=== PATIENT | female | born 1970 | race Caucasian/White ===

== ENCOUNTER → 2017-03-04 | Outpatient (CLI) | payer OTHER | LOC: M LAB 11:29 | PROVIDERS: ATTEND Family Medicine | DX: E11.42 Type 2 diabetes mellitus with diabetic polyneuropathy (principal) ==

== ENCOUNTER 2017-05-13 15:51 | Emergency (ER) | payer OTHER ==
[~2017-05-13] VITALS: Ht 157.5 cm; Wt 82.3 kg
[2017-05-13 15:51] VITALS: BP 162/100
[2017-05-13] MEDS ORDERED: ZYRT10CA PO (16:11)
[2017-05-13] MEDS ORDERED: PLAV1TAB2 PO (16:11)
[2017-05-13] MEDS ORDERED: CRES10TA32 PO (16:11)
[2017-05-13] MEDS ORDERED: ASPI1TAB PO (16:11)
[2017-05-13] MEDS ORDERED: BIOT10008 PO (16:11)
[2017-05-13] MEDS ORDERED: METF10004 PO (16:11)
[2017-05-13] MEDS ORDERED: TOUJ1.2I SC (16:11)
[2017-05-13] MEDS ORDERED: OMEP20CA3 PO (16:11)
[2017-05-13] MEDS ORDERED: SING10TA32 PO (16:11)
[2017-05-13] MEDS ORDERED: METO1TAB7 PO (16:11)
== END 2017-05-13 17:28 | disposition left against medical advice (07) ==
LOC: M ED 15:51
DX: J34.89 Other specified disorders of nose and nasal sinuses (principal); Z53.21 Procedure and treatment not carried out due to patient leaving prior to being seen by health care provider

== ENCOUNTER 2017-06-06 08:45 | Outpatient (RCR) | payer OTHER ==
[~2017-06-06 08:45] MED LIST: ASPI1TAB PO; BIOT10008 PO; CRES10TA32 PO; METF10004 PO; METO1TAB7 PO; OMEP20CA3 PO; PLAV1TAB2 PO; SING10TA32 PO; TOUJ1.2I SC; ZYRT10CA PO
== END 2017-06-08 ==
LOC: M PT 08:45
PROVIDERS: ATTEND Family Medicine
DX: Z51.89 Encounter for other specified aftercare (principal); M54.41 Lumbago with sciatica, right side

== ENCOUNTER → 2017-06-10 | Outpatient (CLI) | payer OTHER ==
--- NOTE | 2017-06-10 13:48 | REP ---
PA and lateral chest: Comparison is the portable chest dated 10/12/2014. The lung rosales are clear. Cardiac size is normal. The bunny, mediastinum, and bony thorax are. There is a spinal stimulator. This was also present previously. Impression: Essentially negative PA and lateral chest. Signed by Kayden Spicer MD 06/10/2017 01:39 P
== END ==
LOC: M RAD 12:22
PROVIDERS: ATTEND Family Medicine
DX: R05 Cough (principal)

== ENCOUNTER → 2017-08-07 | Outpatient (REF) | payer OTHER | LOC: M SFHCPLAZ 11:08 | PROVIDERS: ATTEND Family Medicine | DX: E11.42 Type 2 diabetes mellitus with diabetic polyneuropathy (principal) ==

== ENCOUNTER → 2017-11-11 | Outpatient (CLI) | payer OTHER ==
[2017-11-11 10:17] LABS: ALT/SGPT 52 U/L (12-78); AST/SGOT 33 U/L (7-37); CHOLESTEROL LEVEL 136 MG/DL (<200); CHOLESTEROL RISK RATIO 3.885 (<5); CPK CREATINE PHOSPHOKINASE 94 U/L (26-192); HDL CHOLESTEROL 35 MG/DL (>40); LDL CHOLESTEROL 63.2 MG/DL (<100); NON-HDL-C 101 MG/DL; TRIGLYCERIDES LEVEL 189 MG/DL (<150)
== END ==
LOC: M LAB 08:25
DX: Z98.61 Coronary angioplasty status (principal)
CPT/HCPCS: 84460

== ENCOUNTER → 2017-11-11 | Outpatient (CLI) | payer OTHER | LOC: M RAD 08:20 | DX: Z12.31 Encounter for screening mammogram for malignant neoplasm of breast (principal) | CPT/HCPCS: 77067 ==

== ENCOUNTER → 2018-01-21 | Outpatient (REF) | payer OTHER | LOC: M SFHCPLAZ 17:05 | DX: J02.9 Acute pharyngitis, unspecified (principal) | CPT/HCPCS: 87070 ==

== ENCOUNTER → 2018-03-06 | Outpatient (REF) | payer OTHER | LOC: M SFHCPLAZ 16:28 | DX: J02.9 Acute pharyngitis, unspecified (principal) ==

== ENCOUNTER 2018-03-09 21:13 | Emergency (ER) | payer SELFPAY, OTHER ==
[2018-03-09] MEDS: BENZONATATE 100 MG CAP PO (23:06)
[2018-03-09] MEDS: dexameTHASONE 4 MG/ML 1ML VIAL (J1100) PO (23:06)
== END 2018-03-09 23:44 | disposition home or self-care (01) ==
LOC: M ED 21:13
DX: J06.9 Acute upper respiratory infection, unspecified (principal); I25.2 Old myocardial infarction; E11.9 Type 2 diabetes mellitus without complications; I10 Essential (primary) hypertension; E78.5 Hyperlipidemia, unspecified; J45.909 Unspecified asthma, uncomplicated; J18.9 Pneumonia, unspecified organism; R51 Headache; K21.9 Gastro-esophageal reflux disease without esophagitis; Z95.5 Presence of coronary angioplasty implant and graft; Z79.82 Long term (current) use of aspirin; Z79.899 Other long term (current) drug therapy; Z88.8 Allergy status to other drugs, medicaments and biological substances; Z88.5 Allergy status to narcotic agent
CPT/HCPCS: J1100

== ENCOUNTER → 2018-07-23 | Outpatient (REF) | payer OTHER, SELFPAY | LOC: M LAB REF 17:09 | DX: J02.9 Acute pharyngitis, unspecified (principal) | CPT/HCPCS: 87070 ==

== ENCOUNTER → 2018-08-29 | Outpatient (REF) | payer OTHER ==
[~2018-08-29] MED LIST changes: +CHERSYP3 PO; +TESS100C PO; +XYZA5TAB2 PO
== END ==
LOC: M SFHCPLAZ 15:26
PROVIDERS: ATTEND Family Medicine
DX: L03.115 Cellulitis of right lower limb (principal)

== ENCOUNTER 2018-10-17 10:51 | Emergency (ER) | payer OTHER ==
[2018-10-17] MEDS ORDERED: insulin (11:14)
[2018-10-17] MEDS ORDERED: PANTOPRAZOLE 40MG INJ (PROTONIX) (C9113) IV ONE (11:45)
[2018-10-17] MEDS ORDERED: NITROGLYCERIN 0.4 MG SUBL TABLET SL PRN (11:45)
[2018-10-17 11:46] LABS: BASO # 0.1 10^3/uL (0.0-0.2); BASO % 0.8 % (0.0-1.0); EOS # 0.3 10^3/uL (0.0-0.50); EOS % 4.3 % (0.0-3.0); HEMATOCRIT 36.1 % (36.0-47.0); HEMOGLOBIN 11.9 g/dl (12.0-15.5); LYMPH # 1.9 10^3/uL (1.5-4.5); LYMPH % 30.2 % (24.0-44.0); MEAN CORPUSCULAR HEMOGLOBIN 28.2 pg (27.0-33.0); MEAN CORPUSCULAR VOLUME 85.5 fl (80.0-96.0); MONO # 0.3 10^3/uL (0.0-0.8); MONO % 5.4 % (0.0-5.0); NEUTROPHILS # 3.7 10^3/uL (1.8-7.7); NEUTROPHILS % 59.1 % (36.0-66.0); PLATELET COUNT, AUTOMATED 272 10^3/uL (150-450); RED BLOOD COUNT 4.22 10^6/uL (4.00-5.40); WHITE BLOOD COUNT 6.3 10^3/uL (4.0-10.0)
[2018-10-17 11:52] VITALS: BP 129/95
[2018-10-17 11:56] LABS: INR 0.95; PARTIAL THROMBOPLASTIN TIME 29.5 SECONDS (25.4-37.6); PROTHROMBIN TIME 12.8 SECONDS (12.1-14.4)
[2018-10-17 12:06] LABS: ALBUMIN 3.4 GM/DL (3.2-5.2); ALT/SGPT 48 U/L (12-78); BILIRUBIN,DIRECT < 0.1 MG/DL (0.0-0.2); BILIRUBIN,TOTAL 0.2 MG/DL (0.2-1.0); BLOOD UREA NITROGEN 11 MG/DL (7-18); CALCIUM LEVEL 8.8 MG/DL (8.5-10.1); CARBON DIOXIDE LEVEL 25 MEQ/L (21-32); CHLORIDE LEVEL 105 MEQ/L (98-107); CPK CREATINE PHOSPHOKINASE 118 U/L (26-192); CREATININE FOR GFR 0.78 MG/DL (0.55-1.30); GLOMERULAR FILTRATION RATE > 60.0 (>58); GLUCOSE, FASTING 281 MG/DL (70-100); LIPASE 95 U/L (73-393); MB/CK RELATIVE INDEX 1.61 (< OR =4); POTASSIUM SERUM 4.8 MEQ/L (3.5-5.1); SODIUM LEVEL 137 MEQ/L (136-145); TOTAL PROTEIN 6.8 GM/DL (6.4-8.2); TROPONIN I < 0.02 NG/ML (< 0.10)
--- NOTE | 2018-10-17 13:16 | REP ---
AP PORTABLE CHEST: 10/17/2018. Clinical history: Dyspnea. Chest pain. Comparison: 03/09/2018 chest x-ray. Findings: Lungs are adequately inflated. There is no effusion, infiltrate, atelectasis or mass. No parenchymal nodules visible. The heart is not enlarged. Aorta and airway intact. There is no widening the mediastinum. The dorsal column stimulator is seen extending into the neck and its tip not visible on this field of view. Battery unit overlying the right flank. Bones were unremarkable. No free air. Impression: 1. No acute cardiopulmonary change. Stable chest from 03/09/2018. Dorsal column stimulator noted. Electronically Signed by Carlos Whyte MD 10/17/2018 05:49 P
--- NOTE | 2018-10-17 13:18 | ECGEPIP ---
Stationary ECG Study [facility] - ED Test Date: 2018-10-17 Pat Name: VANI LOZA Department: Room: - Gender: F Core Manager: GREG : 1970 Requested By: Adams Nunes Order Number: [id number] Reading MD: Anna Cheatham Measurements Intervals [place] Rate: 95 P: 36 LA: 166 QRS: 2 QRSD: 89 T: 69 QT: 359 QTc: 453 Interpretive Statements SINUS RHYTHM ANTEROSEPTAL MYOCARDIAL INFARCTION, PROBABLY OLD NSTTW ABNORMALITY INCREASED RATE 10/13/14 Electronically Signed On 10-17-2018 13:18:24 EST by Anna Cheatham
[2018-10-17 14:23] LABS: CPK CREATINE PHOSPHOKINASE 118 U/L (26-192); MB/CK RELATIVE INDEX 1.27 (< OR =4); TROPONIN I < 0.02 NG/ML (< 0.10)
[2018-10-17 15:45] VITALS: BP 121/73
[2018-10-17 16:44] LABS: CPK CREATINE PHOSPHOKINASE 96 U/L (26-192); MB/CK RELATIVE INDEX 1.56 (< OR =4); TROPONIN I < 0.02 NG/ML (< 0.10)
[2018-10-17] MEDS ORDERED: PROT1TAB2 PO (16:56)
--- NOTE | 2018-10-17 18:02 | ECGEPIP ---
Stationary ECG Study [facility] - ED Test Date: 2018-10-17 Pat Name: VANI LOZA Department: Room: - Gender: F Rn Spine: MAREK : 1970 Requested By: Adams Nunes Order Number: [id number] Reading MD: Anna Cheatham Measurements Intervals [place] Rate: 86 P: 34 WI: 166 QRS: 1 QRSD: 86 T: 66 QT: 363 QTc: 435 Interpretive Statements SINUS RHYTHM ANTEROSEPTAL MYOCARDIAL INFARCTION, PROBABLY OLD NSTTW ABNORMALITY DECREASED RATE 10/17/18 Electronically Signed On 10-17-2018 18:01:46 EST by Anna Cheatham
--- NOTE | 2018-10-17 18:03 | ECGEPIP ---
Stationary ECG Study [facility] - ED Test Date: 2018-10-17 Pat Name: VANI LOZA Department: Room: - Gender: F Etiquette Coach: GREG : 1970 Requested By: Adams Nunes Order Number: [id number] Reading MD: Anna Cheatham Measurements Intervals [place] Rate: 83 P: 43 VT: 173 QRS: 19 QRSD: 90 T: 78 QT: 373 QTc: 441 Interpretive Statements SINUS RHYTHM SEPTAL MYOCARDIAL INFARCTION, PROBABLY OLD SIMILAR 10/17/18 Electronically Signed On 10-17-2018 18:03:21 EST by Anna Cheatham
== END 2018-10-17 17:07 | disposition home or self-care (01) ==
LOC: EDBD 10:51 → M ED 10:51
DX: E10.43 Type 1 diabetes mellitus with diabetic autonomic (poly)neuropathy (principal); K21.9 Gastro-esophageal reflux disease without esophagitis; I25.10 Atherosclerotic heart disease of native coronary artery without angina pectoris; I25.2 Old myocardial infarction; I10 Essential (primary) hypertension; E78.5 Hyperlipidemia, unspecified; Z95.5 Presence of coronary angioplasty implant and graft; Z79.82 Long term (current) use of aspirin; Z79.84 Long term (current) use of oral hypoglycemic drugs; Z79.4 Long term (current) use of insulin; Z79.899 Other long term (current) drug therapy; Z88.5 Allergy status to narcotic agent; Z88.8 Allergy status to other drugs, medicaments and biological substances
CPT/HCPCS: 71045; 80048; 80076; 82550; 82553; 83690; 85025; 85379; 85610; 85730; 93005; 93041; 94760; 96374; 99285; C9113

== ENCOUNTER → 2018-11-21 | Outpatient (REF) | payer OTHER ==
[~2018-11-21] MED LIST changes: +PROT1TAB2 PO; +insulin
[2018-11-21 14:12] LABS: BASO # 0.1 10^3/uL (0.0-0.2); BASO % 1.1 % (0.0-1.0); EOS # 0.7 10^3/uL (0.0-0.50); EOS % 8.3 % (0.0-3.0); HEMATOCRIT 39.4 % (36.0-47.0); LYMPH # 2.4 10^3/uL (1.5-4.5); LYMPH % 29.7 % (24.0-44.0); MEAN CORPUSCULAR HEMOGLOBIN 28.3 pg (27.0-33.0); MEAN CORPUSCULAR VOLUME 85.7 fl (80.0-96.0); MONO # 0.6 10^3/uL (0.0-0.8); MONO % 6.8 % (0.0-5.0); NEUTROPHILS # 4.3 10^3/uL (1.8-7.7); NEUTROPHILS % 53.6 % (36.0-66.0); PLATELET COUNT, AUTOMATED 254 10^3/uL (150-450)
[2018-11-21 14:20] LABS: APPEARANCE, URINE CLEAR (CLEAR); BACTERIA, URINE AUTO 1+ (NEGATIVE); BILIRUBIN, URINE AUTO NEGATIVE (NEGATIVE); BLOOD, URINE BLOOD NEGATIVE (NEGATIVE); COLOR, URINE YELLOW (YELLOW); GLUCOSE, URINE (UA) AUTO NEGATIVE (NEGATIVE); KETONE, URINE AUTO NEGATIVE (NEGATIVE); LEUKOCYTE ESTERASE, URINE AUTO NEGATIVE (NEGATIVE); MUCUS, URINE SMALL (NEGATIVE); NITRITE, URINE AUTO NEGATIVE (NEGATIVE); PROTEIN, URINE AUTO NEGATIVE (NEGATIVE); RBC, URINE AUTO 1 /HPF (0-3); SPECIFIC GRAVITY URINE AUTO 1.009 (1.002-1.035); SQUAMOUS EPITHELIAL CELL UR AU 5 /HPF (0-6); UROBILINOGEN, URINE AUTO 0.2 mg/dL (0.0-2.0); WBC, URINE AUTO 0 /HPF (0-3)
[2018-11-21 14:30] LABS: ALBUMIN 3.6 GM/DL (3.2-5.2); ALT/SGPT 54 U/L (12-78); BILIRUBIN,TOTAL 0.3 MG/DL (0.2-1.0); BLOOD UREA NITROGEN 14 MG/DL (7-18); CALCIUM LEVEL 8.8 MG/DL (8.5-10.1); CARBON DIOXIDE LEVEL 27 MEQ/L (21-32); CHLORIDE LEVEL 107 MEQ/L (98-107); CHOLESTEROL LEVEL 129 MG/DL (<200); CHOLESTEROL RISK RATIO 4.031 (<5); CREATININE FOR GFR 0.77 MG/DL (0.55-1.30); FREE T4 0.88 NG/DL (0.76-1.46); GLOMERULAR FILTRATION RATE > 60.0 (>58); GLUCOSE, FASTING 113 MG/DL (70-100); HDL CHOLESTEROL 32 MG/DL (>40); LDL CHOLESTEROL 58 MG/DL (<100); NON-HDL-C 97 MG/DL; POTASSIUM SERUM 4.2 MEQ/L (3.5-5.1); SODIUM LEVEL 140 MEQ/L (136-145); TOTAL 25(OH) VITAMIN D 14.3 NG/ML (30.0-100.0); TRIGLYCERIDES LEVEL 196 MG/DL (<150)
[2018-11-21 14:44] LABS: CREATININE, URINE 60.8 MG/DL; MALB URINE SIEMENS 7.6 MG/L; MAU/CREAT RATIO 12.5 MCG/MG (0.0-30.0)
[2018-11-21 15:37] LABS: HEMOGLOBIN A1c 8.5 %
[2018-11-22 14:37] LABS: Lyme Disease IgG/IgM Antibodie <0.91 ISR (0.00-0.90); Lyme Disease IgM Ab Quantitati <0.80 index (0.00-0.79)
== END ==
LOC: M LAB REF 11:54
PROVIDERS: ATTEND Family Medicine
DX: Z00.01 Encounter for general adult medical examination with abnormal findings (principal); I25.10 Atherosclerotic heart disease of native coronary artery without angina pectoris; E10.9 Type 1 diabetes mellitus without complications

== ENCOUNTER 2019-01-21 16:56 | Emergency (ER) | payer OTHER ==
[~2019-01-21] VITALS: Ht 157.5 cm; Wt 84.5 kg
[~2019-01-21 16:56] MED LIST changes: -ASPI1TAB PO; +ASPI81TA26 PO; +CRES10TA PO; -CRES10TA32 PO
[2019-01-21] MEDS ORDERED: INSUHUMDS (17:14)
[2019-01-21 17:50] LABS: BASO # 0.1 10^3/uL (0.0-0.2); EOS # 0.6 10^3/uL (0.0-0.50); EOS % 7.8 % (0.0-3.0); HEMATOCRIT 39.9 % (36.0-47.0); HEMOGLOBIN 13.4 g/dl (12.0-15.5); LYMPH # 2.4 10^3/uL (1.5-4.5); LYMPH % 30.3 % (24.0-44.0); MEAN CORPUSCULAR HEMOGLOBIN 28.5 pg (27.0-33.0); MEAN CORPUSCULAR HGB CONC 33.6 g/dl (32.0-36.5); MEAN CORPUSCULAR VOLUME 84.9 fl (80.0-96.0); MONO # 0.5 10^3/uL (0.0-0.8); MONO % 5.9 % (0.0-5.0); NEUTROPHILS # 4.3 10^3/uL (1.8-7.7); NEUTROPHILS % 54.7 % (36.0-66.0); PLATELET COUNT, AUTOMATED 246 10^3/uL (150-450); WHITE BLOOD COUNT 7.8 10^3/uL (4.0-10.0)
[2019-01-21 17:58] LABS: INR 0.94; PROTHROMBIN TIME 12.7 SECONDS (12.1-14.4)
[2019-01-21 18:07] LABS: ALBUMIN 3.6 GM/DL (3.2-5.2); ALT/SGPT 55 U/L (12-78); BILIRUBIN,TOTAL 0.2 MG/DL (0.2-1.0); BLOOD UREA NITROGEN 8 MG/DL (7-18); CARBON DIOXIDE LEVEL 22 MEQ/L (21-32); CHLORIDE LEVEL 108 MEQ/L (98-107); CPK CREATINE PHOSPHOKINASE 101 U/L (26-192); CREATININE FOR GFR 0.83 MG/DL (0.55-1.30); GLOMERULAR FILTRATION RATE > 60.0 (>58); GLUCOSE, FASTING 230 MG/DL (70-100); LIPASE 162 U/L (73-393); MB/CK RELATIVE INDEX 1.58 (< OR =4); SODIUM LEVEL 138 MEQ/L (136-145); TOTAL PROTEIN 6.9 GM/DL (6.4-8.2); TROPONIN I < 0.02 NG/ML (< 0.10)
--- NOTE | 2019-01-21 18:30 | REP ---
Chest x-ray: Portable single view: History: Chest pain. Comparison study: October 17, 2018. Findings: The lungs are well inflated and clear. Heart size is normal. EKG monitoring electrodes are seen. There is a neurostimulator wire lead seen overlying the right chest and apparently coursing into the cervical spinal canal. No bony abnormality is seen. Pulmonary vasculature is not increased. The pleural angles are sharp. Impression: No active cardiopulmonary disease. Neurostimulator device seen. Electronically Signed by Konrad Sánchez MD 01/21/2019 07:08 P
[2019-01-21] MEDS ORDERED: KETOROLAC 30 MG/ML VIAL (J1885) IV ONE ×2 (19:30→21:45)
[2019-01-21] MEDS ORDERED: ACETAMINOPHEN TAB 650MG DOSE (2X325MG) PO ONE (20:15)
--- NOTE | 2019-01-21 21:08 | ECGEPIP ---
Stationary ECG Study [facility] - ED Test Date: 2019-01-21 Pat Name: VANI LOZA Department: Room: - Gender: F Twister Tender Paper: hakan : 1970 Requested By: MIKE Josue Order Number: [id number] Reading MD: Anna Cheatham Measurements Intervals [place] Rate: 94 P: 42 [place]: 155 QRS: 15 QRSD: 96 T: 75 QT: 377 QTc: 473 Interpretive Statements SINUS RHYTHM ANTEROSEPTAL MYOCARDIAL INFARCTION, OF INDETERMINATE AGE NSTTW ABNORMALITY INCREASED RATE 10/17/18 Electronically Signed On 01-21-2019 21:08:02 EDT by Anna Cheatham
--- NOTE | 2019-01-21 21:11 | ECGEPIP ---
Stationary ECG Study [facility] - ED Test Date: 2019-01-21 Pat Name: VANI LOZA Department: Room: - Gender: F Turkey Egg Gatherer: muriel : 1970 Requested By: MIKE Josue Order Number: [id number] Reading MD: Anna Cheatham Measurements Intervals [place] Rate: 78 P: 12 IN: 148 QRS: 1 QRSD: 90 T: 68 QT: 381 QTc: 436 Interpretive Statements SINUS RHYTHM ANTEROSEPTAL MYOCARDIAL INFARCTION, OF INDETERMINATE AGE NSTTW ABNORMALITY DECREASED RATE 01/21/19 17:22 Electronically Signed On 01-21-2019 21:11:26 EDT by Anna Cheatham
[2019-01-21 21:20] LABS: MB/CK RELATIVE INDEX 1.34 (< OR =4); TROPONIN I 0.02 NG/ML (< 0.10)
[2019-01-21 21:59] VITALS: BP 34/80
== END 2019-01-21 22:12 | disposition home or self-care (01) ==
LOC: M ED 16:56
DX: R07.89 Other chest pain (principal); I25.10 Atherosclerotic heart disease of native coronary artery without angina pectoris; I25.2 Old myocardial infarction; E10.9 Type 1 diabetes mellitus without complications; I10 Essential (primary) hypertension; E78.5 Hyperlipidemia, unspecified; K21.9 Gastro-esophageal reflux disease without esophagitis; G43.909 Migraine, unspecified, not intractable, without status migrainosus; Z95.5 Presence of coronary angioplasty implant and graft; Z96.9 Presence of functional implant, unspecified; Z79.82 Long term (current) use of aspirin; Z79.4 Long term (current) use of insulin; Z79.899 Other long term (current) drug therapy; Z88.5 Allergy status to narcotic agent; Z88.4 Allergy status to anesthetic agent
CPT/HCPCS: 36415; 71045; 80053; 82550; 82553; 83690; 85025; 85610; 93005; 93041; 94760; 96374; 99285; J1885

== ENCOUNTER 2019-05-04 20:50 | Emergency (ER) | payer OTHER, SELFPAY ==
[~2019-05-04] VITALS: Ht 157.5 cm; Wt 81.8 kg
[~2019-05-04 20:50] MED LIST changes: +INSUHUMDS SC; +OMEP1CAP73 PO; -OMEP20CA3 PO
[2019-05-04 21:35] LABS: BASO # 0.1 10^3/uL (0.0-0.2); BASO % 0.8 % (0.0-1.0); EOS # 0.3 10^3/uL (0.0-0.50); EOS % 3.5 % (0.0-3.0); HEMATOCRIT 39.4 % (36.0-47.0); HEMOGLOBIN 13.4 g/dl (12.0-15.5); LYMPH # 2.5 10^3/uL (1.5-4.5); LYMPH % 33.6 % (24.0-44.0); MEAN CORPUSCULAR HEMOGLOBIN 28.1 pg (27.0-33.0); MEAN CORPUSCULAR VOLUME 82.6 fl (80.0-96.0); MONO # 0.5 10^3/uL (0.0-0.8); MONO % 6.3 % (0.0-5.0); NEUTROPHILS # 4.1 10^3/uL (1.8-7.7); NEUTROPHILS % 55.7 % (36.0-66.0); PLATELET COUNT, AUTOMATED 256 10^3/uL (150-450); RED BLOOD COUNT 4.77 10^6/uL (4.00-5.40); WHITE BLOOD COUNT 7.4 10^3/uL (4.0-10.0)
[2019-05-04 22:10] LABS: ALBUMIN 3.7 GM/DL (3.2-5.2); ALT/SGPT 49 U/L (12-78); AMYLASE 37 U/L (25-115); BILIRUBIN,DIRECT < 0.1 MG/DL (0.0-0.2); BILIRUBIN,TOTAL 0.4 MG/DL (0.2-1.0); BLOOD UREA NITROGEN 11 MG/DL (7-18); CALCIUM LEVEL 9.4 MG/DL (8.5-10.1); CARBON DIOXIDE LEVEL 28 MEQ/L (21-32); CHLORIDE LEVEL 104 MEQ/L (98-107); CREATININE FOR GFR 1.34 MG/DL (0.55-1.30); GLOMERULAR FILTRATION RATE 45.1 (>58); GLUCOSE, FASTING 237 MG/DL (70-100); LIPASE 188 U/L (73-393); POTASSIUM SERUM 4.3 MEQ/L (3.5-5.1); SODIUM LEVEL 136 MEQ/L (136-145); TOTAL PROTEIN 7.6 GM/DL (6.4-8.2)
[2019-05-05] MEDS ORDERED: TRUL0.5I SC (00:30)
[2019-05-05] MEDS ORDERED: LEVOTAB10 (00:30)
[2019-05-05] MEDS ORDERED: ISOVUE-370 76% 100ML VIAL (Q9967) As Ordered ONE (00:54)
[2019-05-05] MEDS ORDERED: NS 1,000 ML IV ONE (01:00)
[2019-05-05] MEDS ORDERED: ONDANSETRON 4MG/2ML VIAL (J2405) IV ONE (01:00)
[2019-05-05] MEDS ORDERED: KETOROLAC 30 MG/ML VIAL (J1885) IV ONE (01:00)
[2019-05-05 02:44] VITALS: BP 130/84
--- NOTE | 2019-05-05 03:00 | REPVR ---
EXAM: CT Abdomen and Pelvis With Contrast EXAM DATE/TIME: 05/05/19 (1:02am) CLINICAL HISTORY: 48 year old female with epigastric pain TECHNIQUE: Imaging protocol: Computed tomography images of the abdomen and pelvis with intravenous contrast. Radiation optimization: All CT scans at this facility use at least one of these dose optimization techniques: automated exposure control; mA and/or kV adjustment per patient size (includes targeted exams where dose is matched to clinical indication); or iterative reconstruction. Contrast material: Iso Contrast volume: 100 ml Contrast route: Antecubital vein COMPARISON: No relevant prior studies available FINDINGS: Liver: No solid mass. Diffuse fatty infiltration. Gallbladder and bile ducts: Contracted gallbladder. No obvious calcified stones. No ductal dilatation. Pancreas: Normal. No ductal dilatation. Spleen: Normal. No splenomegaly. Adrenals: Normal. No mass. Kidneys and ureters: Normal. No hydronephrosis. Stomach and bowel: Normal. No bowel obstruction. No mucosal thickening. Appendix: No evidence of appendicitis. Intraperitoneal space: Normal. No free air. No significant fluid collection. Vasculature: Normal. No abdominal aortic aneurysm. Lymph nodes: Normal. No enlarged lymph nodes. Bladder: Unremarkable as visualized. Reproductive: Perhaps previous hysterectomy. Left adnexal cyst(s) (largest cystic component measures 3.6 x 2.3 x 2.5 cm in dimensions). Bones/joints: No acute fracture nor dislocation. Soft tissues: Unremarkable. IMPRESSION: No acute findings. Perhaps previous hysterectomy. Left adnexal cyst(s) (perhaps left ovarian cyst(s), if the left ovary remains). Electronically signed by: Jacqui Echeverria On 05/05/2019 03:00:16 AM
[2019-05-05] MEDS ORDERED: METAL LOCK LOOP XX ONE (03:15)
[2019-05-05] MEDS ORDERED: DICY10CA13 PO (03:33)
== END 2019-05-05 03:43 | disposition home or self-care (01) ==
LOC: M ED 20:50
DX: R10.9 Unspecified abdominal pain (principal); I25.10 Atherosclerotic heart disease of native coronary artery without angina pectoris; I25.2 Old myocardial infarction; E11.9 Type 2 diabetes mellitus without complications; K58.9 Irritable bowel syndrome, unspecified; K21.9 Gastro-esophageal reflux disease without esophagitis; Z95.5 Presence of coronary angioplasty implant and graft; Z79.82 Long term (current) use of aspirin; Z79.4 Long term (current) use of insulin; Z79.899 Other long term (current) drug therapy; Z88.8 Allergy status to other drugs, medicaments and biological substances; Z88.5 Allergy status to narcotic agent
CPT/HCPCS: 36415; 74177; 80048; 80076; 81001; 82150; 83690; 85025; 96361; 96374; 96375; 99284; J1885; J2405; Q9967

== ENCOUNTER 2019-05-22 12:45 | Emergency (ER) | payer OTHER ==
[~2019-05-22] VITALS: Ht 157.5 cm; Wt 81.9 kg
[~2019-05-22 12:45] MED LIST changes: -BACIOIN5 OP; -BACIOIN5 TOP; -CETI-14 PO; -DOCU100C17 PO; -KEFL500C17 PO; -METH750T2 PO; -METO1TAB33 PO; -OMEP-221 PO; -ROBA750T4 PO; -ULTR50TA8 PO; -zyrtec PO
[2019-05-22] MEDS ORDERED: OMEP-221 PO (13:27)
[2019-05-22] MEDS ORDERED: zyrtec PO (13:27)
[2019-05-22] MEDS ORDERED: TOUJ1.2I SC (13:27)
[2019-05-22 14:24] LABS: APPEARANCE, URINE CLEAR (CLEAR); BACTERIA, URINE AUTO NEGATIVE (NEGATIVE); BILIRUBIN, URINE AUTO NEGATIVE (NEGATIVE); BLOOD, URINE BLOOD NEGATIVE (NEGATIVE); COLOR, URINE STRAW (YELLOW); GLUCOSE, URINE (UA) AUTO 3+ mg/dL (NEGATIVE); KETONE, URINE AUTO TRACE mg/dL (NEGATIVE); LEUKOCYTE ESTERASE, URINE AUTO NEGATIVE (NEGATIVE); NITRITE, URINE AUTO NEGATIVE (NEGATIVE); PROTEIN, URINE AUTO NEGATIVE (NEGATIVE); RBC, URINE AUTO 1 /HPF (0-3); SPECIFIC GRAVITY URINE AUTO 1.005 (1.002-1.035); SQUAMOUS EPITHELIAL CELL UR AU 0 /HPF (0-6); UROBILINOGEN, URINE AUTO 0.2 mg/dL (0.0-2.0); WBC, URINE AUTO 0 /HPF (0-3)
[2019-05-22 14:28] LABS: BASO # 0.1 10^3/uL (0.0-0.2); BASO % 0.7 % (0.0-1.0); EOS # 0.2 10^3/uL (0.0-0.5); EOS % 3.1 % (0.0-3.0); HEMATOCRIT 38.6 % (36.0-47.0); MEAN CORPUSCULAR HEMOGLOBIN 28.3 pg (27.0-33.0); MEAN CORPUSCULAR HGB CONC 33.7 g/dl (32.0-36.5); MEAN CORPUSCULAR VOLUME 83.9 fl (80.0-96.0); MONO # 0.5 10^3/uL (0.0-0.8); MONO % 7.6 % (0.0-5.0); NEUTROPHILS # 3.9 10^3/uL (1.5-8.5); NEUTROPHILS % 58.5 % (36.0-66.0); PLATELET COUNT, AUTOMATED 240 10^3/uL (150-450); WHITE BLOOD COUNT 6.7 10^3/uL (4.0-10.0)
[2019-05-22 14:44] LABS: BLOOD UREA NITROGEN 8 MG/DL (7-18); C REACTIVE PROTEIN QUANTITATIV 0.76 MG/DL (0.00-0.30); CALCIUM LEVEL 9.2 MG/DL (8.5-10.1); CARBON DIOXIDE LEVEL 27 MEQ/L (21-32); CHLORIDE LEVEL 105 MEQ/L (98-107); CREATININE FOR GFR 0.83 MG/DL (0.55-1.30); GLOMERULAR FILTRATION RATE > 60.0 (>58); GLUCOSE, FASTING 200 MG/DL (70-100); POTASSIUM SERUM 4.1 MEQ/L (3.5-5.1); SODIUM LEVEL 137 MEQ/L (136-145)
--- NOTE | 2019-05-22 15:08 | REP ---
ULTRASOUND LEFT LOWER ANTERIOR ABDOMINAL WALL: Real-time sonographic evaluation of left lower anterior abdominal wall performed at the site of inflammation. There is soft tissue edema seen. No discrete fluid collection or abscess is seen. IMPRESSION: No sonographic evidence of abscess in the area of inflammation of the anterior abdominal wall inferiorly on the left. Electronically Signed by Kayden Casey MD 05/22/2019 03:20 P
[2019-05-22] MEDS ORDERED: ULTR50TA8 PO (15:13)
[2019-05-22] MEDS ORDERED: ROBA750T4 PO (15:13)
[2019-05-22] MEDS ORDERED: BACIOIN5 OP (15:13)
[2019-05-22] MEDS ORDERED: KEFL500C17 PO (15:13)
[2019-05-22 15:27] VITALS: BP 124/79
== END 2019-05-22 15:30 | disposition home or self-care (01) ==
LOC: M ED 12:45
DX: M54.30 Sciatica, unspecified side (principal); L03.311 Cellulitis of abdominal wall; I25.10 Atherosclerotic heart disease of native coronary artery without angina pectoris; Z88.5 Allergy status to narcotic agent; Z79.82 Long term (current) use of aspirin; Z79.899 Other long term (current) drug therapy; Z79.4 Long term (current) use of insulin

== ENCOUNTER → 2019-05-22 | Outpatient (REF) | payer OTHER ==
[~2019-05-22] MED LIST changes: +BACIOIN5 OP; +BACIOIN5 TOP; +CETI-14 PO; +DICY10CA13 PO; +DOCU100C17 PO; +KEFL500C17 PO; +LEVOTAB10; +METH750T2 PO; +METO1TAB33 PO; +OMEP-221 PO; -OMEP1CAP73 PO; +OMEP20CA4 PO; +ROBA750T4 PO; +TRUL0.5I SC; +ULTR50TA8 PO; +zyrtec PO
== END ==
LOC: M LAB REF 18:36
PROVIDERS: ATTEND Family Medicine
DX: L03.90 Cellulitis, unspecified (principal)

== ENCOUNTER 2019-05-25 13:26 | Inpatient (IN) | payer OTHER ==
[~2019-05-25] VITALS: Ht 157.5 cm; Wt 79.5 kg
[~2019-05-25 13:26] MED LIST changes: +BACIOIN5 OP; +KEFL500C17 PO; +OMEP-221 PO; +ROBA750T4 PO; +ULTR50TA8 PO; +zyrtec PO
[2019-05-25 15:02] VITALS: BP 132/89
[2019-05-25] MEDS ORDERED: MAALOX 30 ML SUSP *UDC PO PRN (15:15)
[2019-05-25] MEDS ORDERED: MOM 30ML SUSPENSION UDC PO PRN (15:15)
[2019-05-25 15:38] LABS: HEMATOCRIT 39.9 % (36.0-47.0); HEMOGLOBIN 13.7 g/dl (12.0-15.5); MEAN CORPUSCULAR HEMOGLOBIN 28.8 pg (27.0-33.0); MEAN CORPUSCULAR HGB CONC 34.3 g/dl (32.0-36.5); PLATELET COUNT, AUTOMATED 249 10^3/uL (150-450); RED BLOOD COUNT 4.75 10^6/uL (4.00-5.40); WHITE BLOOD COUNT 7.8 10^3/uL (4.0-10.0)
[2019-05-25] MEDS ORDERED: METH750T2 PO (16:01)
[2019-05-25] MEDS ORDERED: CETI-14 PO (16:01)
[2019-05-25] MEDS ORDERED: DOCU100C17 PO (16:01)
[2019-05-25] MEDS ORDERED: METO1TAB33 PO (16:01)
[2019-05-25 16:05] LABS: ALBUMIN 3.7 GM/DL (3.2-5.2); ALT/SGPT 36 U/L (12-78); BILIRUBIN,TOTAL 0.2 MG/DL (0.2-1.0); BLOOD UREA NITROGEN 10 MG/DL (7-18); CALCIUM LEVEL 9.6 MG/DL (8.5-10.1); CARBON DIOXIDE LEVEL 23 MEQ/L (21-32); CHLORIDE LEVEL 106 MEQ/L (98-107); GLOMERULAR FILTRATION RATE > 60.0 (>58); GLUCOSE, FASTING 166 MG/DL (70-100); POTASSIUM SERUM 3.9 MEQ/L (3.5-5.1); SODIUM LEVEL 139 MEQ/L (136-145); TOTAL PROTEIN 7.2 GM/DL (6.4-8.2)
[2019-05-25] MEDS ORDERED: BACIOIN5 TOP (16:23)
--- NOTE | 2019-05-25 16:37 | HPEPDOC ---
General Date of Admission May 25, 2019 at 14:56 Date of Service: May 25, 2019 Chief Complaint The patient is a 48-year-old female admitted with a reason for visit of Cellulitis. Source: Patient, Old records Exam Limitations: No limitations Severity: Moderate History of Present Illness 48 year old female with PMH of Diabetes with neuropathy, hypertension, CAD, hyperlipidemia who developed an abdominal furuncle about 5 days ago. She went to see her PMD and had a wound swab done 3 days ago which came back positive for MRSA . She was called today and told to come to the hospital for IV antibiotics. SHe complains of mild soreness at the region of furuncle located in the left lower quadrant about 3 cm x 4 cm in size . pain is about 3/10 in intensity dull aching in nature without any radiation. SHe also complains of chronic low back pain dull aching in nature. She is admitted for MRSA abdominal cellulitis. Home Medications Scheduled Aspirin (Aspirin EC) 81 Mg Tab, 81 MG PO DAILY, (Reported) Bacitracin (Bacitracin) 3.5 Gm Oint...g., 1 APLCT OP TID Cephalexin (Keflex) 500 Mg Capsule, 500 MG PO QID Cetirizine HCl (Cetirizine HCl) 10 Mg Tablet, 10 MG PO QHS, (Reported) Clopidogrel Bisulfate (Plavix) 75 Mg Tab, 75 MG PO DAILY, (Reported) Dulaglutide (Trulicity) 1.5 Mg/0.5 Ml Pen.injctr, 1.5 MG SC 1XWK, (Reported) SATURDAY MORNINGS Insulin Glargine,Hum.rec.anlog ([place]) 300 Unit/1 Ml Insuln.pen, 35 UNIT SC DAILY, (Reported) Insulin Human Lispro (Humalog) 100 Unit/1 Ml Vial, SC ACHS, (Reported) Metformin HCl (Metformin HCl) 1,000 Mg Tab, 1,000 MG PO BID, (Reported) Metoprolol Succinate (Metoprolol Succinate) 100 Mg Tab.er.24h, 50 MG PO BID, (Reported) Montelukast Sodium (Singulair) 10 Mg Tab, 10 MG PO DAILY, (Reported) Omeprazole (Omeprazole) 40 Mg Capsule.dr, 40 MG PO QHS, (Reported) Rosuvastatin Calcium (Crestor) 10 Mg Tab, 10 MG PO QHS, (Reported) Scheduled PRN Docusate Sodium (Docusate Sodium) 100 Mg Capsule, 100 MG PO BID PRN for CONSTIPATION, (Reported) Methocarbamol (Methocarbamol) 750 Mg Tablet, 750 MG PO QHS PRN for PAIN, (Reported) Allergies Coded Allergies: lidocaine (Verified Allergy, Intermediate, SWELLING, 05/25/19) tramadol (Verified Allergy, Unknown, ITCHING, 05/25/19) empagliflozin (Verified Adverse Reaction, Intermediate, ELEVATED HR, 05/25/19) morphine (Verified Adverse Reaction, Mild, VOMITING, 05/22/19) Past Medical History Medical History CAD S/P [place] 08/2013 X 3. PCI X 3 WITH STENTS. IDDM ASTHMA, MILD INTERMITTENT HTN CHRONIC LOW BACK PAIN HAS DORSAL COLUMN STIMULATOR IBS HYPERLIPIDEMIA Surgical History PCI X 3 2012, HYSTRECTOMY, DORSAL COLUMN STIMULATOR, C SECTION Family History FATHER: 71 YRS, CAD, [place] IN 50S, CABG X 5, PACER MOTHER: ALIVE 70 YRS, CAGB, HTN, SJOGRENS SIBLINGS: ALIVE 50 YRS, BROTHER: PRE-DIABETES 50 SISTER: HEALTHY, 49 SISTER: IBS SON(S): ALIVE, SON: IBS, CELIAC DAUGHTER: BIPOLAR Social History * Smoker: Denies Alcohol: Denies Drugs: denies A-FIB/CHADSVASC A-FIB History Current/History of A-Fib/PAF?: No Laboratory Data Labs 24H Laboratory Tests 2 05/25/19 15:23: Nucleated Red Blood Cells % (auto) 0.0 CBC/BMP Laboratory Tests 05/25/19 15:23 Red Blood Count 4.75, Mean Corpuscular Volume 84.0, Mean Corpuscular Hemoglobin 28.8, Mean Corpuscular Hemoglobin Concent 34.3, Red Cell Distribution Width 13.2 Microbiology Microbiology 05/25/19 Blood Culture, Received Pending Assessment/Plan 48 year old female with PMH of Diabetes with neuropathy, hypertension, CAD, hyperlipidemia who developed an abdominal furuncle about 5 days ago. She went to see her PMD and had a wound swab done 3 days ago which came back positive for MRSA . She was called today and told to come to the hospital for IV antibiotics. SHe complains of mild soreness at the region of furuncle located in the left lower quadrant about 3 cm x 4 cm in size . pain is about 3/10 in intensity dull aching in nature without any radiation. SHe also complains of chronic low back pain dull aching in nature. She is admitted for MRSA abdominal cellulitis/ carbuncle Abdominal wall carbuncle will give vancomycin As reported by patient an US was done and there was no collection. I think it is a developing abscess and will need incision and drainge . blood cultures ordered. Diabetes continue levemir and lispro as per sliding scale FS AC and HS. Hypertension continue home meds Hyperlipidemia continue statin CAD s/p stents continue asa, plavix, statin , betablocker. Chronic back pain with muscle spasms continue methacarbamol. Plan / VTE VTE Prophylaxis Ordered?: Yes DENIS BERRIOS MD May 25, 2019 15:58
[2019-05-25] MEDS ORDERED: GLUCOSE 4 GM CHEW TABLET PO PRN (16:45)
[2019-05-25] MEDS ORDERED: GLUCAGON FOR INJ 1 MG VIAL (J1610) SC PRN (16:45)
[2019-05-25] MEDS ORDERED: DEXTROSE 50% 50 ML SYRINGE IV PRN (16:45)
[2019-05-25] MEDS: HumaLOG INSULIN (NovoLOG) PER UNIT SC SCH ×2 (18:27→20:21)
[2019-05-25] MEDS ORDERED: VANCOMYCIN HCL 1,000 MG, VIAL MATE ADAPTER 1 EACH in D5W 250 ML IV ONE ×2 (19:00→20:00)
[2019-05-25] MEDS: OMEPRAZOLE 20 MG CAP PO SCH (20:19)
[2019-05-25] MEDS: ROSUVASTATIN 10 MG TAB (CRESTOR) PO SCH (20:20)
[2019-05-25] MEDS: METOPROLOL SUCC (TopROL XL) 100MG *XL* TAB PO SCH (20:21)
[2019-05-25] MEDS: DOCUSATE SODIUM 100 MG CAP PO SCH (20:22)
[2019-05-25] MEDS ORDERED: METOCLOPRAMIDE INJ 10MG/2ML VIAL (J2765) IV PRN (20:45)
[2019-05-25] MEDS: ACETAMINOPHEN TAB 650MG DOSE (2X325MG) PO PRN (21:26)
[2019-05-25 22:00] VITALS: BP 146/73
--- NOTE | 2019-05-25 23:02 | PHACANCOPD ---
PHARMACY VANCOMYCIN DOSING Pt Demographics Demographics Patient Age:48 , Weight:79.400 , Gender: female Adjusted Body Weight Events Past 24 Hours Events Past 24 Hours: NO: Dialysis, Diuretic Therapy, Change in CrCl, Fever, Elevation in WBC, Pending Diagnostics, Pending Procedures, Other Vancomycin Vancomycin indication: SSSI MRSA Vancomycin Target Ranges: 15-20 mcg/ml Vancomycin Load Y/N: Yes Load Dose Date Time Vancomycin Load Dose: 2GM Date: 05/25/19 Time: 20:00 Vancomycin Dose Date: 05/26/19. Current Vancomycin Dose: [1GM IV Q8H (4:00)] Intermittent Dosing?: No Labs Labs Laboratory Tests 05/25/19 15:23 Red Blood Count 4.75, Mean Corpuscular Volume 84.0, Mean Corpuscular Hemoglobin 28.8, Mean Corpuscular Hemoglobin Concent 34.3, Red Cell Distribution Width 13.2, Calcium Level 9.6, Aspartate Amino Transf (AST/SGOT) 21, Alanine Aminotransferase (ALT/SGPT) 36, Alkaline Phosphatase 62, Total Bilirubin 0.2, Total Protein 7.2, Albumin 3.7 Micro Microbiology 05/25/19 Blood Culture, Received Pending 05/25/19 Blood Culture, Received Pending Creatinine Clearance Date:05/25/19. Creatinine Clearance: [>70ml/min]. Pending Labs VANCO TR 05/26/19 20:00 DOSE (19:00) Assessment and Plan Maintaining Current Dose?: Yes Reason for dose change: No Dose Change Pharmacist Note Pharmacist Note Date: 05/25/19. PharmD note: VANCO 2GM LOAD ON FLOOR AT 20:00 FOLLOWED BY 1GM IV Q8H STARTING 04:00 05/26/19 WE WILL OBTAIN A VANCO TROUGH TOMORROW EVENING PRIOR TO HER 20:00 DOSE [facility] May 25, 2019 23:01
[2019-05-26] MEDS: VANCOMYCIN HCL 1,000 MG, VIAL MATE ADAPTER 1 EACH in D5W 250 ML IV SCH ×3 (04:07→21:07)
[2019-05-26 06:00] VITALS: BP 137/87
[2019-05-26] MEDS: HumaLOG INSULIN (NovoLOG) PER UNIT SC SCH ×4 (08:21→21:00)
[2019-05-26] MEDS: METOPROLOL SUCC (TopROL XL) 100MG *XL* TAB PO SCH ×2 (08:21→21:08)
[2019-05-26] MEDS: CLOPIDOGREL 75 MG TAB PO SCH (08:23)
[2019-05-26] MEDS: ASPIRIN 81 MG ENTERIC TAB PO SCH (08:23)
[2019-05-26] MEDS: LEVEMIR (INSULIN DETEMIR) 1 UNITS/0.01ML SC SCH (08:23)
[2019-05-26] MEDS: MONTELUKAST 10 MG TAB PO SCH (08:24)
[2019-05-26] MEDS: DOCUSATE SODIUM 100 MG CAP PO SCH ×2 (08:24→21:00)
--- NOTE | 2019-05-26 12:28 | IPNPDOC ---
Subjective Date Seen The patient was seen on 05/26/19. Subjective Chief Complaint/HPI As per patient, swelling is decreased and redness also has decreased along with pain Constitutional: Denies: Chills, Fever, Malaise, Night Sweats, Weakness, Fatigue, Weight Loss, Lethargy, Other ENT: Denies: Head Aches, Ear Pain, Dysphagia, Sinus Congestion, Post Nasal Drip, Sore Throat, Epistaxis, Other Symptoms Skin: Reports: Other (, swelling and redness at the anterior abdominal wall) Pulmonary: Denies: Dyspnea, Cough, Pleuritic Chest Pain, Other Symptoms Cardiovascular: Denies: Chest Pain, Palpitations, Orthopnea, Paroxysmal Noc. Dyspnea, Edema, Lt Headedness, Other Symptoms Gastrointestinal: Denies: Nausea, Vomiting, Abdominal Pain, Diarrhea, Constipation, Melena, Hematochezia, Other Symptoms Musculoskeletal: Denies: Neck Pain, Back Pain, Shoulder Pain, Arm Pain, Hand Pain, Leg Pain, Foot Pain, Joint Pain, Muscle Pain, Spasms, Other Symptoms Neurological: Denies: Weakness, Numbness, Incoordination, Change in speech, Confusion, Seizures, Other Symptoms Objective Physical Examination General Exam: Positive: Alert, Cooperative Eye Exam: Positive: PERRLA, Conjunctiva & lids normal ENT Exam: Positive: Atraumatic, Mucous membr. moist/pink Neck Exam: Positive: Supple Chest Exam: Positive: Clear to auscultation, Normal air movement Heart Exam: Positive: Rate Normal, Normal S1 Abdomen Exam: Positive: Normal bowel sounds, Soft, Tenderness Skin Exam: Positive: Other skin issue (. Positive swelling and slight redness at the anterior abdominal wall. No fluctuation. No abscess) Neuro Exam: Positive: Strength at 5/5 X4 ext, Sensation Intact Assessment /Plan Problems (1) Cellulitis, abdominal wall Status: Acute Problem Text: 48 year old female with PMH of Diabetes with neuropathy, hypertension, CAD, hyperlipidemia who developed an abdominal furuncle about 5 days ago. She went to see her PMD and had a wound swab done 3 days ago which came back positive for MRSA . She was called today and told to come to the hospital for IV antibiotics. SHe complains of mild soreness at the region of furuncle located in the left lower quadrant about 3 cm x 4 cm in size . pain is about 3/10 in intensity dull aching in nature without any radiation. SHe also complains of chronic low back pain dull aching in nature. She is admitted for MRSA abdominal cellulitis/ carbuncle Abdominal wall carbuncle Continue vancomycin. Patient seems to be responding well Abdominal ultrasound was done and there was no abscess blood cultures ordered-reports pending (2) Diabetes mellitus Status: Chronic Problem Text: Diabetes continue levemir and lispro as per sliding scale FS AC and HS. (3) GERD (gastroesophageal reflux disease) Status: Chronic (4) HTN (hypertension) Status: Chronic Problem Text: Hypertension continue home meds Plan/VTE VTE Prophylaxis Ordered?: Yes VS, I&O, 24H, Fishbone Vital Signs/I&O Vital Signs Date Time Temp Pulse Resp B/P (MAP) Pulse Ox O2 Delivery O2 Flow Rate FiO2 05/26/19 06:00 98.3 86 18 137/87 (104) 98 I&O- Last 24 Hours up to 6 AM 05/26/19 06:00 Intake Total 2310 ml Output Total 2300 ml Balance 10 ml Laboratory Data 24H LABS Laboratory Tests 2 05/25/19 15:23: Nucleated Red Blood Cells % (auto) 0.0, Anion Gap 10, Glomerular Filtration Rate > 60.0, Blood Urea Nitrogen 10, Creatinine 0.70, Sodium Level 139, Potassium Level 3.9, Chloride Level 106, Carbon Dioxide Level 23, Calcium Level 9.6, Aspartate Amino Transf (AST/SGOT) 21, Alanine Aminotransferase (ALT/SGPT) 36, Alkaline Phosphatase 62, Total Bilirubin 0.2, Total Protein 7.2, Albumin 3.7, Albumin/Globulin Ratio 1.06 05/25/19 19:57: Bedside Glucose (Misc Panel) 150H 05/26/19 06:05: Bedside Glucose (Misc Panel) 161H CBC/BMP Laboratory Tests 05/25/19 15:23 Red Blood Count 4.75, Mean Corpuscular Volume 84.0, Mean Corpuscular Hemoglobin 28.8, Mean Corpuscular Hemoglobin Concent 34.3, Red Cell Distribution Width 13.2, Calcium Level 9.6, Aspartate Amino Transf (AST/SGOT) 21, Alanine Aminotransferase (ALT/SGPT) 36, Alkaline Phosphatase 62, Total Bilirubin 0.2, Total Protein 7.2, Albumin 3.7 Microbiology Microbiology 05/25/19 Blood Culture, Received Pending 05/25/19 Blood Culture, Received Pending RVAI MORALES MD May 26, 2019 12:28
[2019-05-26 14:00] VITALS: BP 158/91
[2019-05-26] MEDS: ROSUVASTATIN 10 MG TAB (CRESTOR) PO SCH (21:06)
[2019-05-26] MEDS: OMEPRAZOLE 20 MG CAP PO SCH (21:06)
[2019-05-26 22:00] VITALS: BP 136/78
[2019-05-27] MEDS: VANCOMYCIN HCL 1,000 MG, VIAL MATE ADAPTER 1 EACH in D5W 250 ML IV SCH ×3 (04:33→20:02)
[2019-05-27 06:00] VITALS: BP 130/83
[2019-05-27 08:00] VITALS: BP 124/78
[2019-05-27] MEDS: HumaLOG INSULIN (NovoLOG) PER UNIT SC SCH ×4 (08:43→21:00)
[2019-05-27] MEDS: METOPROLOL SUCC (TopROL XL) 100MG *XL* TAB PO SCH ×2 (09:09→20:06)
[2019-05-27] MEDS: MONTELUKAST 10 MG TAB PO SCH (09:09)
[2019-05-27] MEDS: DOCUSATE SODIUM 100 MG CAP PO SCH ×2 (09:09→20:03)
[2019-05-27] MEDS: CLOPIDOGREL 75 MG TAB PO SCH (09:09)
[2019-05-27] MEDS: ASPIRIN 81 MG ENTERIC TAB PO SCH (09:09)
[2019-05-27] MEDS: LEVEMIR (INSULIN DETEMIR) 1 UNITS/0.01ML SC SCH (09:25)
[2019-05-27 09:34] LABS: BLOOD UREA NITROGEN 9 MG/DL (7-18); CALCIUM LEVEL 9.1 MG/DL (8.5-10.1); CARBON DIOXIDE LEVEL 25 MEQ/L (21-32); CHLORIDE LEVEL 104 MEQ/L (98-107); CREATININE FOR GFR 0.84 MG/DL (0.55-1.30); GLOMERULAR FILTRATION RATE > 60.0 (>58); GLUCOSE, FASTING 260 MG/DL (70-100); POTASSIUM SERUM 4.1 MEQ/L (3.5-5.1); SODIUM LEVEL 136 MEQ/L (136-145)
--- NOTE | 2019-05-27 11:15 | IPNPDOC ---
Subjective Date Seen The patient was seen on 05/27/19. Subjective Chief Complaint/HPI Swelling is decreased significantly. The redness is also has decreased and the swelling is discharging spontaneously General: Denies: ROS Unobtainable, Chills, Night Sweats, Fatigue, Malaise, Normal Appetite, Other Symptoms Constitutional: Denies: Chills, Fever, Malaise, Night Sweats, Weakness, Fatig ue, Weight Loss, Lethargy, Other Skin: Reports: Other (. Decreased swelling and redness of the abdomen. Some discharge noted that the friend in the center of swelling with dressing applied) Pulmonary: Denies: Dyspnea, Cough, Pleuritic Chest Pain, Other Symptoms Cardiovascular: Denies: Chest Pain, Palpitations, Orthopnea, Paroxysmal Noc. Dyspnea, Edema, Lt Headedness, Other Symptoms Gastrointestinal: Denies: Nausea, Vomiting, Abdominal Pain, Diarrhea, Constipation, Melena, Hematochezia, Other Symptoms Endocrine: Denies: Polydipsia, Polyphagia, Polyuria, Heat Intolerance, Cold Intolerance, Other Endocrine Sx Musculoskeletal: Denies: Neck Pain, Back Pain, Shoulder Pain, Arm Pain, Hand Pain, Leg Pain, Foot Pain, Joint Pain, Muscle Pain, Spasms, Other Symptoms Neurological: Denies: Weakness, Numbness, Incoordination, Change in speech, Confusion, Seizures, Other Symptoms Objective Physical Examination General Exam: Positive: Alert, Cooperative Eye Exam: Positive: PERRLA, Conjunctiva & lids normal ENT Exam: Positive: Atraumatic, Mucous membr. moist/pink Neck Exam: Positive: Supple Chest Exam: Positive: Clear to auscultation, Normal air movement Heart Exam: Positive: Rate Normal, Normal S1 Abdomen Exam: Positive: Normal bowel sounds, Soft, Tenderness Extremity Exam: Positive: Normal pulses Skin Exam: Positive: Other skin issue (. Positive swelling and slight redness at the anterior abdominal wall. No fluctuation. No abscess) Neuro Exam: Positive: Strength at 5/5 X4 ext, Sensation Intact Assessment /Plan Problems (1) Cellulitis, abdominal wall Status: Acute Problem Text: 48 year old female with PMH of Diabetes with neuropathy, hypertension, CAD, hyperlipidemia who developed an abdominal furuncle about 5 days ago. She went to see her PMD and had a wound swab done 3 days ago which came back positive for MRSA . She was called today and told to come to the hospital for IV antibiotics. SHe complains of mild soreness at the region of furuncle located in the left lower quadrant about 3 cm x 4 cm in size . pain is about 3/10 in intensity dull aching in nature without any radiation. SHe also complains of chronic low back pain dull aching in nature. She is admitted for MRSA abdominal cellulitis/ carbuncle Abdominal wall carbuncle Eschen is responded very well, is to treatment with vancomycin Abdominal ultrasound was done and there was no abscess blood cultures ordered-reports pending Presents for wound cultures again Applied dressing. Continue present medication (2) Diabetes mellitus Status: Chronic Problem Text: Diabetes continue levemir and lispro as per sliding scale FS AC and HS. (3) GERD (gastroesophageal reflux disease) Status: Chronic (4) HTN (hypertension) Status: Chronic Problem Text: Hypertension continue home meds Plan/VTE VTE Prophylaxis Ordered?: Yes VS, I&O, 24H, Fishbone Vital Signs/I&O Vital Signs Date Time Temp Pulse Resp B/P (MAP) Pulse Ox O2 Delivery O2 Flow Rate FiO2 05/27/19 08:00 98.6 78 18 124/78 (93) 97 I&O- Last 24 Hours up to 6 AM 05/27/19 06:00 Intake Total 2820 ml Output Total 3720 ml Balance -900 ml Laboratory Data 24H LABS Laboratory Tests 2 05/26/19 12:14: Bedside Glucose (Misc Panel) 195H 05/26/19 17:28: Bedside Glucose (Misc Panel) 212H 05/26/19 18:44: Vancomycin Level Trough 13.4 05/26/19 20:19: Bedside Glucose (Misc Panel) 239H 05/27/19 05:36: Bedside Glucose (Misc Panel) 219H 05/27/19 09:00: Anion Gap 7L, Glomerular Filtration Rate > 60.0, Blood Urea Nitrogen 9, Creatinine 0.84, Sodium Level 136, Potassium Level 4.1, Chloride Level 104, Carbon Dioxide Level 25, Calcium Level 9.1 CBC/BMP Laboratory Tests 05/27/19 09:00 Calcium Level 9.1 Microbiology Microbiology 05/25/19 Blood Culture - Preliminary, Resulted No growth after 24 hours . All specim... 05/25/19 Blood Culture - Preliminary, Resulted No growth after 24 hours . All specim... 05/27/19 Wound Culture, Received Pending RAVI MORALES MD May 27, 2019 11:14
[2019-05-27] MEDS: LACTOBACILLUS ACIDOPHILUS CAP (BACID) PO SCH ×2 (11:46→18:04)
[2019-05-27 14:00] VITALS: BP 136/97
[2019-05-27] MEDS: OMEPRAZOLE 20 MG CAP PO SCH (20:02)
[2019-05-27] MEDS: ROSUVASTATIN 10 MG TAB (CRESTOR) PO SCH (20:02)
[2019-05-27 22:00] VITALS: BP 135/90
[2019-05-28] MEDS: VANCOMYCIN HCL 1,000 MG, VIAL MATE ADAPTER 1 EACH in D5W 250 ML IV SCH ×2 (03:35→12:20)
[2019-05-28 06:00] VITALS: BP 135/90
[2019-05-28 06:04] LABS: BASO # 0.1 10^3/uL (0.0-0.2); BASO % 0.8 % (0.0-1.0); EOS # 0.2 10^3/uL (0.0-0.5); EOS % 2.9 % (0.0-3.0); HEMATOCRIT 39.5 % (36.0-47.0); HEMOGLOBIN 13.4 g/dl (12.0-15.5); LYMPH # 1.9 10^3/uL (1.5-5.0); LYMPH % 27.8 % (24.0-44.0); MEAN CORPUSCULAR HEMOGLOBIN 28.2 pg (27.0-33.0); MEAN CORPUSCULAR HGB CONC 33.9 g/dl (32.0-36.5); MEAN CORPUSCULAR VOLUME 83.2 fl (80.0-96.0); MONO # 0.5 10^3/uL (0.0-0.8); MONO % 6.8 % (0.0-5.0); NEUTROPHILS # 4.1 10^3/uL (1.5-8.5); NEUTROPHILS % 61.2 % (36.0-66.0); PLATELET COUNT, AUTOMATED 240 10^3/uL (150-450); RED BLOOD COUNT 4.75 10^6/uL (4.00-5.40); WHITE BLOOD COUNT 6.7 10^3/uL (4.0-10.0)
[2019-05-28 06:34] LABS: ALBUMIN 3.3 GM/DL (3.2-5.2); ALT/SGPT 42 U/L (12-78); BILIRUBIN,TOTAL 0.2 MG/DL (0.2-1.0); BLOOD UREA NITROGEN 9 MG/DL (7-18); CALCIUM LEVEL 8.7 MG/DL (8.5-10.1); CARBON DIOXIDE LEVEL 21 MEQ/L (21-32); CHLORIDE LEVEL 107 MEQ/L (98-107); CREATININE FOR GFR 0.77 MG/DL (0.55-1.30); GLOMERULAR FILTRATION RATE > 60.0 (>58); GLUCOSE, FASTING 178 MG/DL (70-100); POTASSIUM SERUM 3.7 MEQ/L (3.5-5.1); SODIUM LEVEL 138 MEQ/L (136-145)
[2019-05-28 08:09] VITALS: BP 136/88
[2019-05-28] MEDS: ASPIRIN 81 MG ENTERIC TAB PO SCH (08:09)
[2019-05-28] MEDS: METOPROLOL SUCC (TopROL XL) 100MG *XL* TAB PO SCH (08:09)
[2019-05-28] MEDS: LACTOBACILLUS ACIDOPHILUS CAP (BACID) PO SCH ×2 (08:09→12:19)
[2019-05-28] MEDS: MONTELUKAST 10 MG TAB PO SCH (08:09)
[2019-05-28] MEDS: DOCUSATE SODIUM 100 MG CAP PO SCH (08:09)
[2019-05-28] MEDS: HumaLOG INSULIN (NovoLOG) PER UNIT SC SCH ×2 (08:09→12:20)
[2019-05-28] MEDS: CLOPIDOGREL 75 MG TAB PO SCH (08:09)
[2019-05-28] MEDS: LEVEMIR (INSULIN DETEMIR) 1 UNITS/0.01ML SC SCH (08:10)
[2019-05-28] MEDS: ACETAMINOPHEN TAB 650MG DOSE (2X325MG) PO PRN (08:13)
[2019-05-28] MEDS ORDERED: DULAGLUTIDE 1.5 MG/0.5 ML SC SCH (09:00)
[2019-05-28] MEDS ORDERED: BACT800T5 PO (11:13)
--- NOTE | 2019-05-28 12:35 | PHACANCOPD ---
PHARMACY VANCOMYCIN DOSING Pt Demographics Demographics Patient Age:48 , Weight:79.500 , Gender: female Adjusted Body Weight Events Past 24 Hours Events Past 24 Hours: YES: Other Vancomycin Vancomycin indication: SSSI MRSA Vancomycin Target Ranges: 15-20 mcg/ml Vancomycin Load Y/N: Yes Load Dose Date Time Vancomycin Load Dose: 2GM Date: 05/25/19 Time: 20:00 Vancomycin Dose Date: 05/26/19. Current Vancomycin Dose: [1GM IV Q8H (4:00)] Intermittent Dosing?: No Labs Micro Microbiology 05/25/19 Blood Culture - Preliminary, Resulted No Growth after 48 hours. All Specime... 05/25/19 Blood Culture - Preliminary, Resulted No Growth after 48 hours. All Specime... 05/27/19 Wound Culture, Received Pending Creatinine Clearance Date:05/25/19. Creatinine Clearance: [>70ml/min]. Pending Labs VANCO TR 05/26/19 20:00 DOSE (19:00) Assessment and Plan Maintaining Current Dose?: No Reason for dose change: Trough too low Pharmacist Note Pharmacist Note Date 05/28/19: Trough today at 1101 resulted subtherapeutic at 11.4. Renal function improved since yesterday with a CrCl today of 77ml/min vs. 70ml/min yesterday. Therefore I increased the dose to 1500mg q8h starting at 1200 with another trough scheduled for tomorrow 05/28 at 1100 before the 4th dose. I will continue to monitor this patient and adjust dose prn. Date: 05/25/19. PharmD note: VANCO 2GM LOAD ON FLOOR AT 20:00 FOLLOWED BY 1GM IV Q8H STARTING 04:00 05/26/19 WE WILL OBTAIN A VANCO TROUGH TOMORROW EVENING PRIOR TO HER 20:00 DOSE [facility] May 28, 2019 12:35
--- NOTE | 2019-05-28 12:55 | DS.PDOC ---
Discharge Summary General Date of Admission May 25, 2019 at 14:56 Date of Discharge 05/28/19 Attending Physician: RAVI MORALES MD Discharge Summary PROCEDURES PERFORMED DURING STAY: None. ADMITTING DIAGNOSES: 1. MRSA cellulitis on abdomen. DISCHARGE DIAGNOSES: 1. MRSA cellulitis on abdomen, diabetes mellitus with neuropathy, hypertension, CAD, hyperlipidemia. COMPLICATIONS/CHIEF COMPLAINT: Cellulitis. HISTORY OF PRESENT ILLNESS: 48 year old female with PMH of Diabetes with n europathy, hypertension, CAD, hyperlipidemia who developed an abdominal furuncle about 5 days ago. She went to see her PMD and had a wound swab done 3 days ago which came back positive for MRSA . She was called today and told to come to the hospital for IV antibiotics. SHe complains of mild soreness at the region of furuncle located in the left lower quadrant about 3 cm x 4 cm in size . pain is about 3/10 in intensity dull aching in nature without any radiation. SHe also complains of chronic low back pain dull aching in nature. She is admitted for MRSA abdominal cellulitis.. HOSPITAL COURSE: 48 year old female with PMH of Diabetes with neuropathy, hypertension, CAD, hyperlipidemia who developed an abdominal furuncle about 5 days ago. She went to see her PMD and had a wound swab done 3 days ago which came back positive for MRSA . She was called today and told to come to the hospital for IV antibiotics. SHe complains of mild soreness at the region of furuncle located in the left lower quadrant about 3 cm x 4 cm in size . pain is about 3/10 in intensity dull aching in nature without any radiation. SHe also complains of chronic low back pain dull aching in nature. She is admitted for MRSA abdominal cellulitis/ carbuncle Patient was started on IV vancomycin for MRSA carbuncle She responded very well to IV vancomycin therapy swelling, redness has significantly decreased, and a repeat wound culture was sent out Patient wishes to go home as she has to take care of for 3 years old autistic grandchild patient is clinically stable and can be discharged home on by mouth Bactrim for 10 more [address]iscuss[address] Dr[address] ambrose she agreed agreed with the above plan and patient will follow with her PCP in one week . DISCHARGE MEDICATIONS: Please see below. ALLERGIES: Please see below. PHYSICAL EXAMINATION ON DISCHARGE: VITAL SIGNS: Please see below. GENERAL: Within normal limits HEENT: PERRLA. Extraocular muscles intact NECK: Supple CARDIOVASCULAR EXAMINATION: S1, S2, regular RESPIRATORY EXAMINATION: Clear to A&P ABDOMINAL EXAMINATION: , Soft, nontender decreased swelling and redness at the abdomen EXTREMITIES: No clubbing, cyanosis, edema SKIN: Within normal limits NEUROLOGICAL EXAMINATION: . No focal motor sensory deficit PSYCHIATRIC EXAMINATION: Or depression, anxiety LABORATORY DATA: Please see below. IMAGING: Abdominal sono:. No abscess PROGNOSIS: Good ACTIVITY: As tolerated. DIET: As tolerated DISCHARGE PLAN: With PCP in one week DISPOSITION: . Home DISCHARGE INSTRUCTIONS: 1. As per discharge instructions. ITEMS TO FOLLOWUP ON ON OUTPATIENT: 1. [facility] PCP in one week. DISCHARGE CONDITION: Stable. TIME SPENT ON DISCHARGE: 35 minutes. Vital Signs/I&Os Vital Signs Date Time Temp Pulse Resp B/P (MAP) Pulse Ox O2 Delivery O2 Flow Rate FiO2 05/28/19 08:09 78 136/88 05/28/19 06:00 96.8 20 97 I&O- Last 24 Hours up to 6 AM 05/28/19 06:00 Intake Total 2210 ml Output Total 3500 ml Balance -1290 ml Laboratory Data Labs 24H Laboratory Tests 2 05/27/19 16:34: Bedside Glucose (Misc Panel) 182H 05/27/19 20:38: Bedside Glucose (Misc Panel) 224H 05/28/19 05:10: Immature Granulocyte % (Auto) 0.5, White Blood Count 6.7, Red Blood Count 4.75, Hemoglobin 13.4, Hematocrit 39.5, Mean Corpuscular Volume 83.2, Mean Corpuscular Hemoglobin 28.2, Mean Corpuscular Hemoglobin Concent 33.9, Red Cell Distribution Width 13.7, Platelet Count 240, Neutrophils (%) (Auto) 61.2, Lymphocytes (%) (Auto) 27.8, Monocytes (%) (Auto) 6.8H, Eosinophils (%) (Auto) 2.9, Basophils (%) (Auto) 0.8, Neutrophils # (Auto) 4.1, Lymphocytes # (Auto) 1.9, Monocytes # (Auto) 0.5, Eosinophils # (Auto) 0.2, Basophils # (Auto) 0.1, Nucleated Red Blood Cells % (auto) 0.0, Anion Gap 10, Glomerular Filtration Rate > 60.0, Blood Urea Nitrogen 9, Creatinine 0.77, Sodium Level 138, Potassium Level 3.7, Chloride Level 107, Carbon Dioxide Level 21, Calcium Level 8.7, Aspartate Amino Transf (AST/SGOT) 31, Alanine Aminotransferase (ALT/SGPT) 42, Alkaline Phosphatase 55, Total Bilirubin 0.2, Total Protein 7.0, Albumin 3.3, Albumin/Polina bulin Ratio 0.89L 05/28/19 11:01: Vancomycin Level Trough 11.4 05/28/19 11:25: Bedside Glucose (Misc Panel) 184H CBC/BMP Laboratory Tests 05/28/19 05:10 Red Blood Count 4.75, Mean Corpuscular Volume 83.2, Mean Corpuscular Hemoglobin 28.2, Mean Corpuscular Hemoglobin Concent 33.9, Red Cell Distribution Width 13.7, Neutrophils (%) (Auto) 61.2, Lymphocytes (%) (Auto) 27.8, Monocytes (%) (Auto) 6.8 H, Eosinophils (%) (Auto) 2.9, Basophils (%) (Auto) 0.8, Neutrophils # (Auto) 4.1, Lymphocytes # (Auto) 1.9, Monocytes # (Auto) 0.5, Eosinophils # (Auto) 0.2, Basophils # (Auto) 0.1, Calcium Level 8.7, Aspartate Amino Transf (AST/SGOT) 31, Alanine Aminotransferase (ALT/SGPT) 42, Alkaline Phosphatase 55, Total Bilirubin 0.2, Total Protein 7.0, Albumin 3.3 FSBS Laboratory Tests Test 05/27/19 16:34 05/27/19 20:38 05/28/19 11:25 Range/Units Bedside Glucose (Misc Panel) 182 224 184 70-105 MG/DL Microbiology Microbiology 05/25/19 Blood Culture - Preliminary, Resulted No Growth after 48 hours. All Specime... 05/25/19 Blood Culture - Preliminary, Resulted No Growth after 48 hours. All Specime... 05/27/19 Wound Culture, Received Pending Discharge Medications Scheduled Aspirin (Aspirin EC) 81 Mg Tab, 81 MG PO DAILY, (Reported) Cephalexin (Keflex) 500 Mg Capsule, 500 MG PO QID Cetirizine HCl (Cetirizine HCl) 10 Mg Tablet, 10 MG PO QHS, (Reported) Clopidogrel Bisulfate (Plavix) 75 Mg Tab, 75 MG PO DAILY, (Reported) Dulaglutide (Trulicity) 1.5 Mg/0.5 Ml Pen.injctr, 1.5 MG SC 1XWK, (Reported) SATURDAY MORNINGS Insulin Glargine,Hum.rec.anlog (Caleuwayneo Solostar) 300 Unit/1 Ml Insuln.pen, 35 UNIT SC DAILY, (Reported) Insulin Human Lispro (Humalog) 100 Unit/1 Ml Vial, SC ACHS, (Reported) Metformin HCl (Metformin HCl) 1,000 Mg Tab, 1,000 MG PO BID, (Reported) Metoprolol Succinate (Metoprolol Succinate) 100 Mg Tab.er.24h, 50 MG PO BID, (Reported) Montelukast Sodium (Singulair) 10 Mg Tab, 10 MG PO DAILY, (Reported) Omeprazole (Omeprazole) 40 Mg Capsule.dr, 40 MG PO QHS, (Reported) Rosuvastatin Calcium (Crestor) 10 Mg Tab, 10 MG PO QHS, (Reported) Sulfamethoxazole/Trimethoprim (Bactrim Ds Tablet) 1 Each Tablet, 1 TAB PO BID Scheduled PRN Bacitracin (Bacitracin) 3.5 Gm Oint...g., 1 DOSE TOP TID PRN for INFECTION, (Reported) APPLY TO AFFECTED AREA(S) Docusate Sodium (Docusate Sodium) 100 Mg Capsule, 100 MG PO BID PRN for CONSTIPATION, (Reported) Methocarbamol (Methocarbamol) 750 Mg Tablet, 750 MG PO QHS PRN for PAIN, (Reported) Allergies Coded Allergies: lidocaine (Verified Allergy, Intermediate, SWELLING, 05/25/19) tramadol (Verified Allergy, Unknown, ITCHING, 05/25/19) empagliflozin (Verified Adverse Reaction, Intermediate, ELEVATED HR, 05/25) morphine (Verified Adverse Reaction, Mild, VOMITING, 05/22/19) RAVI MORALES MD May 28, 2019 12:54
[2019-05-28] MEDS ORDERED: VANCOMYCIN HCL 500 MG in D5W MINI-BAG PLUS 100 ML IV SCH (13:00)
== END 2019-05-28 14:42 | disposition home or self-care (01) | DRG 383 ==
LOC: M MSPAV 14:56 → EEVIPCON 14:56
PROVIDERS: ADMIT Internal Medicine; ATTEND Internal Medicine
DX: L03.311 Cellulitis of abdominal wall (principal); E11.40 Type 2 diabetes mellitus with diabetic neuropathy, unspecified; I10 Essential (primary) hypertension; I25.10 Atherosclerotic heart disease of native coronary artery without angina pectoris; E78.5 Hyperlipidemia, unspecified; M54.5 Low back pain; J45.20 Mild intermittent asthma, uncomplicated; M62.830 Muscle spasm of back; L02.231 Carbuncle of abdominal wall; K21.9 Gastro-esophageal reflux disease without esophagitis; B95.62 Methicillin resistant Staphylococcus aureus infection as the cause of diseases classified elsewhere; K58.9 Irritable bowel syndrome, unspecified; Z79.82 Long term (current) use of aspirin; Z79.4 Long term (current) use of insulin; Z79.899 Other long term (current) drug therapy; Z88.4 Allergy status to anesthetic agent; Z88.5 Allergy status to narcotic agent; Z88.8 Allergy status to other drugs, medicaments and biological substances; Z95.5 Presence of coronary angioplasty implant and graft

== ENCOUNTER → 2019-06-15 | Outpatient (REF) | payer OTHER ==
[~2019-06-15] MED LIST changes: +BACIOIN5 TOP; +BACT800T5 PO; +CETI-14 PO; +DOCU100C17 PO; +METH750T2 PO; +METO1TAB33 PO
[2019-06-15 19:01] LABS: ALBUMIN 3.6 GM/DL (3.2-5.2); ALT/SGPT 42 U/L (12-78); BILIRUBIN,TOTAL 0.5 MG/DL (0.2-1.0); BLOOD UREA NITROGEN 8 MG/DL (7-18); CARBON DIOXIDE LEVEL 30 MEQ/L (21-32); CHLORIDE LEVEL 101 MEQ/L (98-107); CHOLESTEROL LEVEL 103 MG/DL (<200); CHOLESTEROL RISK RATIO 3.029 (<5); CREATININE FOR GFR 0.75 MG/DL (0.55-1.30); GLOMERULAR FILTRATION RATE > 60.0 (>58); GLUCOSE, FASTING 226 MG/DL (70-100); HDL CHOLESTEROL 34 MG/DL (>40); LDL CHOLESTEROL 36 MG/DL (<100); NON-HDL-C 69 MG/DL; POTASSIUM SERUM 4.5 MEQ/L (3.5-5.1); SODIUM LEVEL 137 MEQ/L (136-145); TOTAL PROTEIN 7.2 GM/DL (6.4-8.2); TRIGLYCERIDES LEVEL 165 MG/DL (<150)
[2019-06-15 19:10] LABS: HEMOGLOBIN A1c 8.5 %
[2019-06-15 19:21] LABS: CREATININE, URINE 73.5 MG/DL; MALB URINE SIEMENS 7.2 MG/L; MAU/CREAT RATIO 9.7 MCG/MG (0.0-30.0)
== END ==
LOC: M LAB REF 16:32
PROVIDERS: ATTEND Family Medicine
DX: E10.9 Type 1 diabetes mellitus without complications (principal)

== ENCOUNTER 2019-07-03 01:22 | Emergency (ER) | payer OTHER ==
[~2019-07-03] VITALS: Ht 157.5 cm; Wt 81.2 kg
[2019-07-03] MEDS ORDERED: NS 500 ML IV ONE (04:30)
[2019-07-03 04:44] LABS: BASO % 0.5 % (0.0-1.0); EOS # 0.2 10^3/uL (0.0-0.5); EOS % 2.8 % (0.0-3.0); HEMATOCRIT 40.5 % (36.0-47.0); HEMOGLOBIN 13.6 g/dl (12.0-15.5); LYMPH % 23.5 % (24.0-44.0); MEAN CORPUSCULAR HEMOGLOBIN 28.8 pg (27.0-33.0); MEAN CORPUSCULAR HGB CONC 33.6 g/dl (32.0-36.5); MEAN CORPUSCULAR VOLUME 85.6 fl (80.0-96.0); MONO # 0.6 10^3/uL (0.0-0.8); MONO % 6.5 % (0.0-5.0); NEUTROPHILS # 5.8 10^3/uL (1.5-8.5); NEUTROPHILS % 66.4 % (36.0-66.0); PLATELET COUNT, AUTOMATED 253 10^3/uL (150-450); RED BLOOD COUNT 4.73 10^6/uL (4.00-5.40); WHITE BLOOD COUNT 8.7 10^3/uL (4.0-10.0)
[2019-07-03 05:14] LABS: ALBUMIN 3.5 GM/DL (3.2-5.2); ALT/SGPT 34 U/L (12-78); BILIRUBIN,DIRECT < 0.1 MG/DL (0.0-0.2); BILIRUBIN,TOTAL 0.3 MG/DL (0.2-1.0); BLOOD UREA NITROGEN 6 MG/DL (7-18); CARBON DIOXIDE LEVEL 26 MEQ/L (21-32); CHLORIDE LEVEL 107 MEQ/L (98-107); CREATININE FOR GFR 0.76 MG/DL (0.55-1.30); GLOMERULAR FILTRATION RATE > 60.0 (>58); GLUCOSE, FASTING 123 MG/DL (70-100); LIPASE 121 U/L (73-393); POTASSIUM SERUM 3.9 MEQ/L (3.5-5.1); SODIUM LEVEL 142 MEQ/L (136-145); TOTAL PROTEIN 7.3 GM/DL (6.4-8.2)
[2019-07-03 05:16] VITALS: BP 115/80
[2019-07-03] MEDS ORDERED: ISOVUE-370 76% 100ML VIAL (Q9967) As Ordered ONE (05:28)
--- NOTE | 2019-07-03 07:33 | REPVR ---
PROCEDURE INFORMATION: Exam: CT Abdomen And Pelvis With Contrast Exam date and time: 07/03/2019 5:26 AM Clinical history: 48 years old, female; Abdominal pain; Localized; Left lower quadrant (llq); Additional info: Llq pain TECHNIQUE: Imaging protocol: Computed tomography of the abdomen and pelvis with intravenous contrast. Radiation optimization: All CT scans at this facility use at least one of these dose optimization techniques: automated exposure control; mA and/or kV adjustment per patient size (includes targeted exams where dose is matched to clinical indication); or iterative reconstruction. Contrast material: ISOVUE 370; Contrast volume: 100 ml; Contrast route: IV; COMPARISON: CT ABD/PEL W/IV CONTRAST ONLY 05/05/2019 1:00 AM FINDINGS: Lungs: The visualized portions of the lung bases are normal. Liver: There is a diffuse decrease in hepatic parenchymal density, consistent with fatty infiltration. Gallbladder and bile ducts: The gallbladder appears partially contracted. No stones are identified. No biliary ductal dilation is seen. Pancreas: The pancreas is normal with no ductal dilation. Spleen: The spleen is normal. Adrenals: The adrenal glands are normal. Kidneys and ureters: The kidneys are unremarkable. There is no hydronephrosis. The nondilated distal ureters are difficult to trace, but no stones are seen along their expected course. Stomach and bowel: There is several nonspecific fluid levels within the small bowel loops, without significant dilation or thickening of the small bowel. There is no dilation or thickening of the colon. Appendix: A normal appendix is identified. Intraperitoneal space: There is a fluid-filled tubular structure in the left hemipelvis measuring 5.3 x 2.9 x 3.0 cm. This probably represents a fluid-filled fallopian tube and was seen previously, but the appearance has changed, now with a thickened wall and mild adjacent stranding. The left ovary, located just superior to this structure, again contains small calcifications, unchanged. A tubular cystic structure associated with the right ovary is also again seen, probably representing a dilated right fallopian tube, without thickening. Vasculature: Atherosclerotic changes are present in the abdominal aorta and the iliac arteries. Lymph nodes: No lymphadenopathy is seen. Bladder: There is mild thickening of the bladder wall, more prominent on the left side. Reproductive: The uterus is absent. Bones/joints: There is facet arthropathy in the lumbar spine. No suspicious osseous lesions. No acute fractures or dislocations. Soft tissues: There is a small periumbilical hernia containing fat. There is mild nonspecific stranding in the subcutaneous tissues of the lower anterior abdominal wall. An implanted device is noted in the right lateral upper abdominal wall with a lead passing superiorly, out of the field of view. IMPRESSION: 1. Tubular cystic structure in the left pelvis was seen previously, but now appears thickwalled and with mild adjacent stranding. This probably represents a dilated fallopian tube, which may now be superinfected. Further assessment with ultrasound may be helpful if there is any doubt if this diagnosis clinically. 2. Tubular structure cyst with the right ovary, probably a dilated fallopian tube without evidence of thickening. 3. Fatty liver. Electronically signed by: Francesca Patel On 07/03/2019 07:32:39 AM
== END 2019-07-03 06:21 | disposition left against medical advice (07) ==
LOC: M ED 01:22
DX: R10.32 Left lower quadrant pain (principal); E11.9 Type 2 diabetes mellitus without complications; I10 Essential (primary) hypertension; E78.5 Hyperlipidemia, unspecified; G62.9 Polyneuropathy, unspecified; K21.9 Gastro-esophageal reflux disease without esophagitis; I25.10 Atherosclerotic heart disease of native coronary artery without angina pectoris; Z95.5 Presence of coronary angioplasty implant and graft; Z79.899 Other long term (current) drug therapy; Z79.82 Long term (current) use of aspirin; Z79.4 Long term (current) use of insulin; Z88.5 Allergy status to narcotic agent; Z88.8 Allergy status to other drugs, medicaments and biological substances
CPT/HCPCS: 36415; 74177; 80048; 80076; 81001; 83690; 85025; 87086; 99284; Q9967

== ENCOUNTER 2019-09-13 21:22 | Emergency (ER) | payer OTHER ==
[~2019-09-13] VITALS: Ht 157.5 cm; Wt 80.9 kg
[~2019-09-13 21:22] MED LIST changes: +OMEP1CAP73 PO; -OMEP20CA4 PO
[2019-09-13 22:24] LABS: BASO # 0.1 10^3/uL (0.0-0.2); BASO % 0.8 % (0.0-1.0); EOS # 0.3 10^3/uL (0.0-0.5); EOS % 3.3 % (0.0-3.0); HEMATOCRIT 39.2 % (36.0-47.0); HEMOGLOBIN 12.6 g/dl (12.0-15.5); LYMPH # 2.4 10^3/uL (1.5-5.0); LYMPH % 31.4 % (24.0-44.0); MEAN CORPUSCULAR HEMOGLOBIN 27.3 pg (27.0-33.0); MEAN CORPUSCULAR HGB CONC 32.1 g/dl (32.0-36.5); MONO # 0.5 10^3/uL (0.0-0.8); MONO % 6.6 % (0.0-5.0); NEUTROPHILS # 4.4 10^3/uL (1.5-8.5); NEUTROPHILS % 57.6 % (36.0-66.0); PLATELET COUNT, AUTOMATED 256 10^3/uL (150-450); RED BLOOD COUNT 4.61 10^6/uL (4.00-5.40); WHITE BLOOD COUNT 7.7 10^3/uL (4.0-10.0)
[2019-09-13] MEDS ORDERED: ONDANSETRON 4MG/2ML VIAL (J2405) IV ONE (22:45)
[2019-09-13] MEDS ORDERED: NS 1,000 ML IV ONE (22:45)
[2019-09-13 22:54] LABS: ALBUMIN 3.5 GM/DL (3.2-5.2); ALT/SGPT 30 U/L (12-78); BILIRUBIN,DIRECT 0.1 MG/DL (0.0-0.2); BILIRUBIN,TOTAL 0.2 MG/DL (0.2-1.0); BLOOD UREA NITROGEN 9 MG/DL (7-18); CALCIUM LEVEL 8.9 MG/DL (8.5-10.1); CARBON DIOXIDE LEVEL 25 MEQ/L (21-32); CHLORIDE LEVEL 106 MEQ/L (98-107); CK-MB VALUE MASS 1.1 NG/ML (<3.6); CPK CREATINE PHOSPHOKINASE 70 U/L (26-192); CREATININE FOR GFR 0.74 MG/DL (0.55-1.30); GLOMERULAR FILTRATION RATE > 60.0 (>58); GLUCOSE, FASTING 155 MG/DL (70-100); LIPASE 215 U/L (73-393); MB/CK RELATIVE INDEX 1.57 (< OR =4); SODIUM LEVEL 140 MEQ/L (136-145); TOTAL PROTEIN 7.1 GM/DL (6.4-8.2); TROPONIN I < 0.02 NG/ML (< 0.10)
--- NOTE | 2019-09-13 22:59 | REP ---
Clinical: Epigastric and abdominal pain. Technique: Upright view of the chest with supine and upright views of the abdomen and pelvis. Findings: Frontal upright view of the chest demonstrates no acute cardiopulmonary process or free air below the diaphragm to suspect pneumoperitoneum. Supine and upright views of the abdomen and pelvis demonstrate nonspecific bowel gas pattern without obstruction or perforation. No organomegaly. No abnormal calcifications. Skeletal structures normal for age. Impression: Nonspecific bowel gas pattern. Electronically Signed by Da Reynoso MD 09/13/2019 10:50 P
[2019-09-13] MEDS ORDERED: DICYCLOMINE 10 MG CAP PO ONE (23:30)
[2019-09-13] MEDS ORDERED: ISOVUE-370 76% 100ML VIAL (Q9967) As Ordered ONE (23:31)
--- NOTE | 2019-09-14 00:26 | REPVR ---
PROCEDURE INFORMATION: Exam: CT Abdomen And Pelvis With Contrast Exam date and time: 09/13/2019 11:16 PM Age: 48 years old Clinical indication: Abdominal pain; Other: EPIGASTRIC AND MID BACK; Additional Info: severe epigastric and mid back pain, lots of gas TECHNIQUE: Imaging protocol: Computed tomography of the abdomen and pelvis with intravenous contrast. Radiation optimization: All CT scans at this facility use at least one of these dose optimization techniques: automated exposure control; mA and/or kV adjustment per patient size (includes targeted exams where dose is matched to clinical indication); or iterative reconstruction. Contrast material: ISOVUE 370; Contrast volume: 100 ml; Contrast route: IV; COMPARISON: CT ABD/PEL W/IV CONTRAST ONLY 07/03/2019 5:26 AM FINDINGS: Tubes, catheters and devices: Stimulator in the right flank with leads extending up the right hemithorax. Tip of the leads are not imaged. Liver: Normal. No mass. Gallbladder and bile ducts: Normal. No calcified stones. No ductal dilation. Pancreas: Normal. No ductal dilation. Spleen: Normal. No splenomegaly. Adrenals: Normal. No mass. Kidneys and ureters: Normal. No hydronephrosis. Stomach and bowel: No abnormal bowel dilatation. No abnormal bowel wall thickening. Negative for colonic diverticulitis. Appendix: The appendix is not seen. However, there is no evidence of appendicitis. Intraperitoneal space: Unremarkable. No free air. No significant fluid collection. Vasculature: No abdominal aortic aneurysm. Moderate atherosclerotic disease. Lymph nodes: Multiple small mesenteric nodes. No lymphadenopathy. Bladder: Unremarkable as visualized. Reproductive: Status post hysterectomy. Cystic lesions in the right ovary measuring up to 3.6 x 1.6 cm. Left ovary is prominent in size measuring 3.7 x 2.8 x 4.3 cm. Bones/joints: Unremarkable. No acute fracture. Soft tissues: Mild subcutaneous edema in the ventral abdomen. IMPRESSION: 1. Status post hysterectomy. 2. Cystic lesions in the right ovary. Recommend US follow-up in 6-12 weeks if not already performed. 3. Left ovary is prominent in size. Left adnexal cystic lesion has resolved. 4. Additional findings as described. Electronically signed by: Estrada Patel On 09/14/2019 00:26:18 AM
[2019-09-14] MEDS ORDERED: DICY10CA13 PO (00:37)
[2019-09-14] MEDS ORDERED: LACT10SO29 PO (00:37)
[2019-09-14 00:43] VITALS: BP 139/80
[2019-09-14] MEDS ORDERED: LACTULOSE 20 GM/30 ML SYRUP UD PO ONE (00:45)
--- NOTE | 2019-09-14 06:54 | ECGEPIP ---
[facility] - ED Test Date: 2019-09-13 Pat Name: VANI LOZA Department: Room: - Gender: Female Plant Operator: ct : 1970 Requested By: DOLORES ALANIS Order Number: [id number] Reading MD: Adams Ireland Measurements Intervals [place] Rate: 89 P: 58 OR: 170 QRS: 21 QRSD: 90 T: 107 QT: 354 QTc: 431 Interpretive Statements SINUS RHYTHM WITH SINUS ARRHYTHMIA ANTEROSEPTAL MYOCARDIAL INFARCTION, OF INDETERMINATE AGE NSTTW ABNORMALITIES SIMILAR TO 01/21/19 Electronically Signed on 09-14-2019 6:53:55 EST by Adams Ireland
--- NOTE | 2019-09-15 12:49 | ED PDOC ---
Post-Departure Follow-Up dr north faxed formal report of ct abd/p for fu Clarice Edwards MD Sep 15, 2019 12:49
== END 2019-09-14 00:48 | disposition home or self-care (01) ==
LOC: M ED 21:22
DX: R10.9 Unspecified abdominal pain (principal); K59.00 Constipation, unspecified; R14.0 Abdominal distension (gaseous); E11.9 Type 2 diabetes mellitus without complications; I10 Essential (primary) hypertension; E78.5 Hyperlipidemia, unspecified; Z88.8 Allergy status to other drugs, medicaments and biological substances; Z88.5 Allergy status to narcotic agent; Z79.899 Other long term (current) drug therapy
CPT/HCPCS: 74021; 74177; 80048; 80076; 81001; 82550; 82553; 83690; 85025; 93005; 96361; 96374; 99284; J2405; Q9967

== ENCOUNTER → 2019-10-12 | Outpatient (CLI) | payer OTHER ==
[~2019-10-12] MED LIST changes: +BIOT1CAP2 PO; +LACT10SO29 PO
[2019-10-12 10:26] LABS: CHOLESTEROL RISK RATIO 3.781 (<5)
[2019-10-13 08:06] LABS: LDL DIRECT 50 mg/dL (0-99)
== END ==
LOC: M LAB 08:53
PROVIDERS: ATTEND Internal Medicine Cardiovascular Disease
DX: I25.10 Atherosclerotic heart disease of native coronary artery without angina pectoris (principal); E78.2 Mixed hyperlipidemia

== ENCOUNTER → 2019-10-13 | Outpatient (REF) | payer OTHER ==
[2019-10-13 18:24] LABS: ALBUMIN 3.9 GM/DL (3.2-5.2); ALT/SGPT 34 U/L (12-78); BILIRUBIN,TOTAL 0.2 MG/DL (0.2-1.0); BLOOD UREA NITROGEN 10 MG/DL (7-18); CALCIUM LEVEL 9.1 MG/DL (8.5-10.1); CARBON DIOXIDE LEVEL 24 MEQ/L (21-32); CHLORIDE LEVEL 106 MEQ/L (98-107); CREATININE FOR GFR 0.73 MG/DL (0.55-1.30); FREE T4 0.89 NG/DL (0.76-1.46); GLOMERULAR FILTRATION RATE > 60.0 (>58); GLUCOSE, FASTING 256 MG/DL (70-100); POTASSIUM SERUM 4.5 MEQ/L (3.5-5.1); SODIUM LEVEL 137 MEQ/L (136-145); TOTAL PROTEIN 7.3 GM/DL (6.4-8.2)
[2019-10-13 18:30] LABS: BASO # 0.1 10^3/uL (0.0-0.2); BASO % 0.6 % (0.0-1.0); EOS # 0.2 10^3/uL (0.0-0.5); HEMOGLOBIN 13.7 g/dl (12.0-15.5); HEMOGLOBIN A1c 8.5 %; LYMPH # 2.2 10^3/uL (1.5-5.0); LYMPH % 27.5 % (24.0-44.0); MEAN CORPUSCULAR HEMOGLOBIN 27.3 pg (27.0-33.0); MEAN CORPUSCULAR HGB CONC 31.9 g/dl (32.0-36.5); MEAN CORPUSCULAR VOLUME 85.7 fl (80.0-96.0); MONO # 0.5 10^3/uL (0.0-0.8); MONO % 5.8 % (0.0-5.0); NEUTROPHILS % 62.7 % (36.0-66.0); PLATELET COUNT, AUTOMATED 241 10^3/uL (150-450); RED BLOOD COUNT 5.02 10^6/uL (4.00-5.40)
== END ==
LOC: M LAB REF 17:36
PROVIDERS: ATTEND Physician Assistant
DX: E11.9 Type 2 diabetes mellitus without complications (principal); I25.10 Atherosclerotic heart disease of native coronary artery without angina pectoris; Z01.818 Encounter for other preprocedural examination

== ENCOUNTER 2019-10-20 05:48 | Day surgery (SDC) | payer OTHER ==
[~2019-10-20] VITALS: Ht 157.5 cm; Wt 79.4 kg
[~2019-10-20 05:48] MED LIST changes: +LR 1,000 ML IV ONE
[2019-10-20] MEDS ORDERED: NITR0.3S4 SL (06:25)
[2019-10-20] MEDS ORDERED: VASC1CAP2 PO (06:25)
[2019-10-20] MEDS ORDERED: BUPIVACAINE HCL 0.25% 30 ML VIAL As Ordered ONE (07:08)
[2019-10-20] MEDS ORDERED: propofoL 200 MG/20 ML VIAL As Ordered ONE (07:18)
[2019-10-20] MEDS ORDERED: ONDANSETRON 4MG/2ML VIAL (J2405) As Ordered ONE (07:18)
[2019-10-20] MEDS ORDERED: LIDOCAINE 2% INJ 100 MG/5 ML SDV (FOR ANES.) As Ordered ONE (07:18)
[2019-10-20] MEDS ORDERED: fentaNYL 250 MCG/5 ML INJECTION (J3010) As Ordered ONE (07:18)
[2019-10-20] MEDS ORDERED: ROCURONIUM BROMIDE 50 MG/5 ML VIAL As Ordered ONE (07:18)
[2019-10-20] MEDS ORDERED: dexameTHASONE 4 MG/ML 1ML VIAL (J1100) As Ordered ONE (07:18)
[2019-10-20] MEDS ORDERED: MIDAZOLAM INJ 2 MG/2 ML VIAL (J2250) As Ordered ONE (07:19)
[2019-10-20] MEDS ORDERED: LACRILUBE (AKWA TEARS) OPHTH OINT 3.5 GM As Ordered ONE (07:51)
[2019-10-20] MEDS ORDERED: ACETAMINOPHEN 1000MG 100ML IV BTL (OFIRMEV) (J0131 PER 10MG) As Ordered ONE (07:57)
[2019-10-20] MEDS ORDERED: HYDROmorphone HCL 2 MG/ML 1ML VIAL (J1170) As Ordered ONE (08:14)
[2019-10-20] MEDS ORDERED: KETOROLAC 60 MG/2 ML VIAL (J1885) As Ordered ONE (08:14)
[2019-10-20] MEDS ORDERED: GLYCOPYRROLATE INJ 0.2 MG/ML 2 ML VIAL As Ordered ONE (08:20)
[2019-10-20] MEDS ORDERED: NEOSTIGMINE 10 MG/10 ML VIAL (J2710) As Ordered ONE (08:20)
[2019-10-20] MEDS ORDERED: METOCLOPRAMIDE INJ 10MG/2ML VIAL (J2765) IV PRN (09:30)
[2019-10-20] MEDS ORDERED: LR 1,000 ML IV SCH (09:30)
[2019-10-20] MEDS ORDERED: ONDANSETRON 4MG/2ML VIAL (J2405) IV PRN (09:30)
[2019-10-20] MEDS ORDERED: PERCOCET 5MG/325MG TAB PO PRN ×2 (09:30→10:31)
[2019-10-20] MEDS ORDERED: fentaNYL 100 MCG/2 ML INJECTION (J3010) IV PRN (09:30)
[2019-10-20] MEDS ORDERED: HYDROMORPHONE HCL 0.5 MG/ 0.5 ML SYRINGE (J1170 PER 1) IV PRN (09:30)
[2019-10-20] MEDS ORDERED: PROMETHAZINE INJ 25 MG/ML VIAL (J2550) As Ordered ONE (11:03)
[2019-10-20 11:55] VITALS: BP 136/81
[2019-10-20] MEDS ORDERED: PROMETHAZINE INJ 25 MG/ML VIAL (J2550) IV ONE (12:00)
[2019-10-20] MEDS ORDERED: ZOFR4TAB16 PO (19:36)
--- NOTE | 2019-10-21 08:12 | ROOPDOC ---
[facility] Report Of Operation Report of Operation DATE OF PROCEDURE: 10/20/2019 PREOPERATIVE DIAGNOSIS: Chronic pelvic pain POSTOPERATIVE DIAGNOSIS: Chronic pelvic pain PROCEDURE PERFORMED: 1. Laparoscopic bilateral salpingo-oophorectomy 2. Lysis of adhesions SURGEON: Puma Ordonez MD INGREDIENT SPECIALIST:. Jimi Matute M.D. ANESTHESIA: General endotracheal anesthesia. ESTIMATED BLOOD LOSS: 5 mL. INTRAVENOUS FLUIDS: 1200 mL lactated Ringer's solution. URINE OUTPUT: 150 mL. SPECIMEN: Bilateral fallopian tubes and ovary PREOPERATIVE ANTIBIOTICS:. None INFECTION CLASSIFICATION: 1. OPERATIVE FINDINGS: [Patient with normal pelvic anatomy.] CYSTOSCOPIC FINDINGS: [Revealed normal bladder mucosa. No foreign bodies were observed. Bilateral ureteral jets were observed during the cystoscopy.] DESCRIPTION OF OPERATION: After informed consent was obtained and written consent was reviewed, the patient brought to the operating room where general endotracheal anesthesia was obtained. She was then placed in lithotomy position and was prepped and draped in a normal sterile fashion. A time out in the operating room was then performed identifying the patient, the procedure be performed, as well as, drug allergies. Speculum was then placed revealing the cervix. Anterior and posterior aspect of the cervix stitched with #0 Vicryl. The uterus then sounded to [7] cm. A [medium] VCare uterine manipulator was ad vanced through cervical os for means to manipulate the uterus. Uterine balloon was then insufflated with 7 mL of air. The cervical cap was placed over the cervix and the vaginal sleeve was advanced down into the vagina. Instruments were then removed. A Aguilar catheter was placed and set to gravity. Gloves were changed. Attention was turned to the patient's abdomen where a Veress needle was placed through the umbilicus. A pneumoperitoneum was then obtained with CO2 gas. The supraumbilical area was then infused 0.25% Marcaine and incision was made in this area. 8 mm trocar and sleeve was advanced through this incision. The laparoscope was then replaced revealing intra-abdominal placement. Three additional port sites were placed, one to the patient's right side of her umbilicus and two to the left side. Each one of these port sites were infused with 0.25% Marcaine Incision was made in each one of these areas and 8 mm trocars and sleeves were advanced through each one of these incisions under direct visualization. Next, da Wendy was then advanced to the patient's table and was docked utilizing the camera arm and two operative arms. Using a vessel sealer, the infundibulopelvic ligament bilaterally was cauterized and ligated with good hemostasis noted. Further dissection using a vessel sealer was done along the round ligaments bilaterally. The anterior lip of the broad ligaments were then skeletonized along the bladder creating a bladder flap. The remainder of the broad and cardinal ligaments were then cauterized and ligated with good hemostasis noted. The uterine arteries were then skeletonized bilaterally and cauterized and ligated with good hemostasis noted. Vessel sealer was then replaced with the monopolar scissor. Anterior and posterior colpotomies were made. The uterus was then removed vaginally with good hemostasis noted. The vaginal cuff was then closed using a #2-0 V-Loc system in a running fashion. Surgical sites then inspected and found to be hemostatic. The abdomen was then irrigated and suctioned. [Pablo was then applied over the surgical rosales.] Next, cystoscopy was then performed. Aguilar catheter was removed from the patient's bladder. The cystoscope was advanced transurethrally through the bladder. Cystoscopy was then performed revealing normal bladder mucosa, bilateral jets were observed and no foreign bodies. The bladder was then drained. Gloves were changed. Attention was turned to the patient's abdomen where all four skin incisions closed with #4-0 Monocryl was dressed with Dermabond. The patient was then taken out of lithotomy position, was awakened general anesthesia and taken to recovery in stable condition. [Alina Chin, my surgical asst, played an essential role during surgery. She assisted with port placement, tissue retraction and identification of structures, as well as, incision closure.] Counts were correct. PUMA ORDONEZ MD. Oct 21, 2019 08:12
[2019-10-21 11:28] LABS: HEP C VIRUS AB INDEX SOURCE PT < 0.0 INDEX (0.0-0.8); HEPATITIS B SURFACE ANTIGEN NEGATIVE (NEGATIVE)
== END 2019-10-20 12:16 | disposition home or self-care (01) ==
LOC: M SDC 05:48
PROVIDERS: ATTEND Obstetrics & Gynecology
DX: R10.2 Pelvic and perineal pain (principal); N83.10 Corpus luteum cyst of ovary, unspecified side; N80.1 Endometriosis of ovary; I10 Essential (primary) hypertension; I25.10 Atherosclerotic heart disease of native coronary artery without angina pectoris; Z98.61 Coronary angioplasty status; E11.9 Type 2 diabetes mellitus without complications; E78.5 Hyperlipidemia, unspecified; F41.9 Anxiety disorder, unspecified; F32.9 Major depressive disorder, single episode, unspecified; Z79.02 Long term (current) use of antithrombotics/antiplatelets; Z79.82 Long term (current) use of aspirin; Z79.4 Long term (current) use of insulin; Z88.8 Allergy status to other drugs, medicaments and biological substances; Z88.5 Allergy status to narcotic agent; Z79.899 Other long term (current) drug therapy
CPT/HCPCS: 36415; 58661; 86803; 86850; 86900; 86901; 87340; 87806; 88305; J0131; J1100; J1170; J2250; J2405; J2710; J2765; J3010

== ENCOUNTER → 2019-11-23 | Outpatient (REF) | payer OTHER ==
[~2019-11-23] MED LIST changes: -LR 1,000 ML IV ONE; +NITR0.3S4 SL; +VASC1CAP2 PO; +ZOFR4TAB16 PO
== END ==
LOC: M LAB REF 12:36
PROVIDERS: ATTEND Physician Assistant
DX: L02.818 Cutaneous abscess of other sites (principal)

== ENCOUNTER → 2019-12-02 | Outpatient (REF) | payer OTHER ==
[2019-12-02 16:48] LABS: BASO # 0.1 10^3/uL (0.0-0.2); BASO % 0.8 % (0.0-1.0); EOS # 0.3 10^3/uL (0.0-0.5); EOS % 4.2 % (0.0-3.0); HEMATOCRIT 40.6 % (36.0-47.0); HEMOGLOBIN 13.4 g/dl (12.0-15.5); LYMPH % 30.9 % (24.0-44.0); MEAN CORPUSCULAR HEMOGLOBIN 28.5 pg (27.0-33.0); MEAN CORPUSCULAR VOLUME 86.4 fl (80.0-96.0); MONO # 0.4 10^3/uL (0.0-0.8); MONO % 6.1 % (0.0-5.0); NEUTROPHILS # 3.7 10^3/uL (1.5-8.5); NEUTROPHILS % 57.5 % (36.0-66.0); PLATELET COUNT, AUTOMATED 256 10^3/uL (150-450); WHITE BLOOD COUNT 6.4 10^3/uL (4.0-10.0)
[2019-12-02 17:03] LABS: ALBUMIN 3.7 GM/DL (3.2-5.2); ALT/SGPT 53 U/L (12-78); AMYLASE 41 U/L (25-115); BILIRUBIN,TOTAL 0.2 MG/DL (0.2-1.0); BLOOD UREA NITROGEN 11 MG/DL (7-18); CALCIUM LEVEL 9.6 MG/DL (8.5-10.1); CARBON DIOXIDE LEVEL 28 MEQ/L (21-32); CHLORIDE LEVEL 102 MEQ/L (98-107); CHOLESTEROL LEVEL 145 MG/DL (<200); CHOLESTEROL RISK RATIO 4.142 (<5); CREATININE FOR GFR 0.98 MG/DL (0.55-1.30); FERRITIN 17 NG/ML (8-252); FREE T4 0.96 NG/DL (0.76-1.46); GLOMERULAR FILTRATION RATE > 60.0 (>58); GLUCOSE, FASTING 188 MG/DL (70-100); HDL CHOLESTEROL 35 MG/DL (>40); IRON (FE) 54 UG/DL (50-170); LDL CHOLESTEROL 66 MG/DL (<100); LIPASE 143 U/L (73-393); NON-HDL-C 110 MG/DL; POTASSIUM SERUM 4.3 MEQ/L (3.5-5.1); SODIUM LEVEL 139 MEQ/L (136-145); TOTAL PROTEIN 7.5 GM/DL (6.4-8.2); TRIGLYCERIDES LEVEL 219 MG/DL (<150); VITAMIN B12 LEVEL 827 PG/ML
[2019-12-02 17:04] LABS: FOLATE > 24.0 NG/ML
[2019-12-02 17:05] LABS: HEMOGLOBIN A1c 9.1 %
== END ==
LOC: M LAB REF 16:27
PROVIDERS: ATTEND Physician Assistant
DX: L02.818 Cutaneous abscess of other sites (principal); Z80.0 Family history of malignant neoplasm of digestive organs; R10.13 Epigastric pain; R43.8 Other disturbances of smell and taste; I10 Essential (primary) hypertension; E11.9 Type 2 diabetes mellitus without complications; L65.9 Nonscarring hair loss, unspecified

== ENCOUNTER → 2019-12-30 | Outpatient (REF) | payer OTHER ==
[2019-12-30 16:00] LABS: CREATININE, URINE 48.1 MG/DL; MALB URINE SIEMENS 5.5 MG/L; MAU/CREAT RATIO 11.4 MCG/MG (0.0-30.0)
== END ==
LOC: M LAB REF 14:52
PROVIDERS: ATTEND Nurse Practitioner Family
DX: E11.65 Type 2 diabetes mellitus with hyperglycemia (principal)

== ENCOUNTER → 2020-01-06 | Outpatient (REF) | payer OTHER ==
[2020-01-06 22:49] LABS: APPEARANCE, URINE CLOUDY (CLEAR); BACTERIA, URINE AUTO NEGATIVE (NEGATIVE); BILIRUBIN, URINE AUTO NEGATIVE (NEGATIVE); BLOOD, URINE BLOOD 2+ (NEGATIVE); CALCIUM OXALATE CRYSTALS SMALL; COLOR, URINE YELLOW (YELLOW); GLUCOSE, URINE (UA) AUTO 3+ mg/dL (NEGATIVE); KETONE, URINE AUTO TRACE mg/dL (NEGATIVE); LEUKOCYTE ESTERASE, URINE AUTO 3+ (NEGATIVE); NITRITE, URINE AUTO NEGATIVE (NEGATIVE); PROTEIN, URINE AUTO 1+ mg/dL (NEGATIVE); RBC, URINE AUTO 22 /HPF (0-3); RENAL EPITHELIAL CELLS 1 /HPF; SPECIFIC GRAVITY URINE AUTO 1.021 (1.002-1.035); SQUAMOUS EPITHELIAL CELL UR AU 2 /HPF (0-6); UROBILINOGEN, URINE AUTO 0.2 mg/dL (0.0-2.0); WBC, URINE AUTO TNTC /HPF (0-3)
== END ==
LOC: M LAB REF 21:00
PROVIDERS: ATTEND Physician Assistant
DX: N39.0 Urinary tract infection, site not specified (principal)

== ENCOUNTER → 2020-02-25 | Outpatient (REF) | payer OTHER ==
[~2020-02-25] MED LIST changes: -LACT10SO29 PO; +LACT20EL PO
== END ==
LOC: M LAB REF 15:46
PROVIDERS: ATTEND Physician Assistant
DX: N30.01 Acute cystitis with hematuria (principal); R31.0 Gross hematuria

== ENCOUNTER → 2020-04-08 | Outpatient (CLI) | payer OTHER ==
[~2020-04-08] MED LIST changes: +ATOR40TA75 PO; +DOK1CAP7 PO
== END ==
LOC: M LAB 09:57
PROVIDERS: ATTEND Internal Medicine Cardiovascular Disease
DX: I25.119 Atherosclerotic heart disease of native coronary artery with unspecified angina pectoris (principal); Z98.61 Coronary angioplasty status; E78.2 Mixed hyperlipidemia

== ENCOUNTER → 2020-05-09 | Outpatient (REF) | payer OTHER | LOC: M LAB REF 15:53 | PROVIDERS: ATTEND Physician Assistant | DX: L02.221 Furuncle of abdominal wall (principal) ==

== ENCOUNTER → 2020-06-16 | Outpatient (CLI) | payer OTHER ==
[~2020-06-16] MED LIST changes: -DOK1CAP7 PO
== END ==
LOC: M LABSMTC 11:42
PROVIDERS: ATTEND Anesthesiology
DX: Z01.812 Encounter for preprocedural laboratory examination (principal); Z20.828 Contact with and (suspected) exposure to other viral communicable diseases
CPT/HCPCS: C9803; U0003

== ENCOUNTER 2020-06-21 09:47 | Day surgery (SDC) | payer OTHER ==
[~2020-06-21] VITALS: Ht 160 cm; Wt 78.9 kg
[~2020-06-21 09:47] MED LIST changes: +NS 1,000 ML IV ONE
[2020-06-21] MEDS ORDERED: fentaNYL 100 MCG/2 ML INJECTION (J3010) As Ordered ONE (10:15)
[2020-06-21] MEDS ORDERED: propofoL 500 MG/50 ML VIAL As Ordered ONE (10:17)
[2020-06-21] MEDS ORDERED: LIDOCAINE 2% 100MG/5ML SDV (FOR ANES.) As Ordered ONE (11:59)
--- NOTE | 2020-06-21 12:22 | ROOR ---
Patient Name: Stephanie Patel Procedure Date: 06/21/2020 11:44 AM Date of : 1970 Age: 49 Room: [facility] Gender: Female Note Status: Finalized Procedure: Upper GI endoscopy Indications: Heartburn, Suspected gastro-esophageal reflux disease Providers: Dallin Tavera MD Referring MD: ANGELICA Ballesteros Requesting Provider: Medicines: Monitored Anesthesia Care Complications: No immediate complications. Procedure: Pre-Anesthesia Assessment: - Prior to the procedure, a History and Physical was performed, and patient medications and allergies were reviewed. The patient is competent. The risks and benefits of the procedure and the sedation options and risks were discussed with the patient. All questions were answered and informed consent was obtained. Patient identification and proposed procedure were verified by the physician, the nurse and the anesthesiologist in the procedure room. Mental Status Examination: alert and oriented. Airway Examination: normal oropharyngeal airway and neck mobility. Respiratory Examination: clear to auscultation. CV Examination: normal. Prophylactic Antibiotics: The patient does not require prophylactic antibiotics. Prior Anticoagulants: The patient has taken no previous anticoagulant or antiplatelet agents. ASA Grade Assessment: II - A patient with mild systemic disease. After reviewing the risks and benefits, the patient was deemed in satisfactory condition to undergo the procedure. The anesthesia plan was to use monitored anesthesia care (MAC). Immediately prior to administration of medications, the patient was re-assessed for adequacy to receive sedatives. The heart rate, respiratory rate, oxygen saturations, blood pressure, adequacy of pulmonary ventilation, and response to care were monitored throughout the procedure. The physical status of the patient was re-assessed after the procedure. The Endoscope was introduced through the mouth, and advanced to the second part of duodenum. The upper GI endoscopy was accomplished without difficulty. The patient tolerated the procedure well. Findings: The Z-line was irregular and was found 40 cm from the incisors. There is no endoscopic evidence of esophagitis in the entire esophagus. Scattered mild inflammation characterized by erythema, friability and granularity was found in the gastric antrum. Biopsies were taken with a cold forceps for Helicobacter pylori testing. Verification of patient identification for the specimen was done by the physician and nurse using the patient's name, date and medical record number. The duodenal bulb and second portion of the duodenum were normal. Impression: - Z-line irregular, 40 cm from the incisors. - Gastritis. Biopsied. - Normal duodenal bulb and second portion of the duodenum. Recommendation: - Patient has a contact number available for emergencies. The signs and symptoms of potential delayed complications were discussed with the patient. Return to normal activities tomorrow. Written discharge instructions were provided to the patient. - High fiber diet. - Continue present medications. - Await pathology results. - Follow an antireflux regimen. - Telephone GI clinic for pathology results in 2 weeks. - Return to primary care physician. Dallin Tavera MD Dallin Tavera MD 06/21/2020 12:21:17 PM Electronically signed by Dallin Tavera MD Number of Addenda: 0 Note Initiated On: 06/21/2020 11:44 AM Estimated Blood Loss: Estimated blood loss: none.
--- NOTE | 2020-06-21 12:42 | ROOR ---
Patient Name: Stephanie Patel Procedure Date: 06/21/2020 11:45 AM Date of : 1970 Age: 49 Room: [facility] Gender: Female Note Status: Finalized Procedure: Colonoscopy Indications: Change in bowel habits, Constipation Providers: Dallin Tavera MD Referring MD: Ana Lilia Landeros Requesting Provider: Medicines: Monitored Anesthesia Care Complications: No immediate complications. Procedure: Pre-Anesthesia Assessment: - Prior to the procedure, a History and Physical was performed, and patient medications and allergies were reviewed. The patient is competent. The risks and benefits of the procedure and the sedation options and risks were discussed with the patient. All questions were answered and informed consent was obtained. Patient identification and proposed procedure were verified by the physician, the nurse and the anesthesiologist in the procedure room. Mental Status Examination: alert and oriented. Airway Examination: normal oropharyngeal airway and neck mobility. Respiratory Examination: clear to auscultation. CV Examination: normal. Prophylactic Antibiotics: The patient does not require prophylactic antibiotics. Prior Anticoagulants: The patient has taken no previous anticoagulant or antiplatelet agents. ASA Grade Assessment: II - A patient with mild systemic disease. After reviewing the risks and benefits, the patient was deemed in satisfactory condition to undergo the procedure. The anesthesia plan was to use monitored anesthesia care (MAC). Immediately prior to administration of medications, the patient was re-assessed for adequacy to receive sedatives. The heart rate, respiratory rate, oxygen saturations, blood pressure, adequacy of pulmonary ventilation, and response to care were monitored throughout the procedure. The physical status of the patient was re-assessed after the procedure. The Colonoscope was introduced through the anus and advanced to the terminal ileum, with identification of the appendiceal orifice and IC valve. The colonoscopy was performed without difficulty. The patient tolerated the procedure well. The quality of the bowel preparation was good. The terminal ileum, ileocecal valve, appendiceal orifice, and rectum were photographed. Scope insertion time was 3 minutes. Scope withdrawal time was 10 minutes. The total duration of the procedure was 11 minutes. Findings: The perianal and digital rectal examinations were normal. The terminal ileum appeared normal. Four sessile polyps were found in the recto-sigmoid colon and ascending colon. The polyps were 3 to 8 mm in size. These polyps were removed with a cold snare. Resection and retrieval were complete. Verification of patient identification for the specimen was done by the physician and nurse using the patient's name, date and medical record number. Non-bleeding external and internal hemorrhoids were found during retroflexion. The hemorrhoids were medium-sized. Impression: - The examined portion of the ileum was normal. - Four 3 to 8 mm polyps at the recto-sigmoid colon and in the ascending colon, removed with a cold snare. Resected and retrieved. - Non-bleeding external and internal hemorrhoids. Recommendation: - Patient has a contact number available for emergencies. The signs and symptoms of potential delayed complications were discussed with the patient. Return to normal activities tomorrow. Written discharge instructions were provided to the patient. - High fiber diet. - Continue present medications. - Resume Plavix (clopidogrel) at prior dose tomorrow. Refer to primary physician for further adjustment of therapy. - Await pathology results. - Repeat colonoscopy in 3 - 5 years for surveillance based on pathology results. - Telephone GI clinic for pathology results in 2 weeks. - Return to primary care physician. Dallin Tavera MD Dallin Tavera MD 06/21/2020 12:41:28 PM Electronically signed by Dallin Tavera MD Number of Addenda: 0 Note Initiated On: 06/21/2020 11:45 AM Estimated Blood Loss: Estimated blood loss was minimal.
[2020-06-21 12:45] VITALS: BP 141/81
== END 2020-06-21 13:00 | disposition home or self-care (01) ==
LOC: M OPP 09:47
PROVIDERS: ATTEND Internal Medicine Gastroenterology
DX: K63.5 Polyp of colon (principal); K64.8 Other hemorrhoids; R19.4 Change in bowel habit; K22.8 Other specified diseases of esophagus; K29.70 Gastritis, unspecified, without bleeding; R12 Heartburn; I25.2 Old myocardial infarction; Z95.5 Presence of coronary angioplasty implant and graft; Z79.82 Long term (current) use of aspirin; Z79.899 Other long term (current) drug therapy; Z88.5 Allergy status to narcotic agent; Z88.8 Allergy status to other drugs, medicaments and biological substances
CPT/HCPCS: 43239; 45385; 88305; J3010

== ENCOUNTER → 2020-06-29 | Outpatient (CLI) | payer OTHER ==
[~2020-06-29] MED LIST changes: +DOK1CAP7 PO; -NS 1,000 ML IV ONE
[2020-06-29 09:59] LABS: CHOLESTEROL RISK RATIO 4.292 (<5)
== END ==
LOC: M LAB 08:32
PROVIDERS: ATTEND Internal Medicine Cardiovascular Disease
DX: I25.119 Atherosclerotic heart disease of native coronary artery with unspecified angina pectoris (principal); E78.2 Mixed hyperlipidemia

== ENCOUNTER → 2020-07-13 | Outpatient (CLI) | payer OTHER ==
[2020-07-13 10:18] LABS: CHOLESTEROL RISK RATIO 3.615 (<5)
== END ==
LOC: M LAB 08:37
PROVIDERS: ATTEND Internal Medicine Cardiovascular Disease
DX: E78.2 Mixed hyperlipidemia (principal)

== ENCOUNTER 2020-07-15 22:36 | Emergency (ER) | payer OTHER ==
[~2020-07-15] VITALS: Ht 160 cm; Wt 80.8 kg
[~2020-07-15 22:36] MED LIST changes: -DOK1CAP7 PO
[2020-07-15 22:37] VITALS: BP 173/91
[2020-07-15] MEDS ORDERED: DOK1CAP7 PO (22:46)
== END 2020-07-16 00:30 | disposition left against medical advice (07) ==
LOC: M ED 22:36
DX: Z53.21 Procedure and treatment not carried out due to patient leaving prior to being seen by health care provider (principal)

== ENCOUNTER 2020-08-15 18:32 | Emergency (ER) | payer OTHER ==
[~2020-08-15] VITALS: Ht 157.5 cm; Wt 79.5 kg
[~2020-08-15 18:32] MED LIST changes: +DOK1CAP7 PO
[2020-08-15 18:33] VITALS: BP 162/94
== END 2020-08-15 19:44 | disposition left against medical advice (07) ==
LOC: M ED 18:32
DX: Z53.21 Procedure and treatment not carried out due to patient leaving prior to being seen by health care provider (principal)

== ENCOUNTER → 2020-09-30 | Outpatient (CLI) | payer OTHER ==
[~2020-09-30] MED LIST changes: +METH-1165 PO; -METH750T2 PO
[2020-09-30 10:43] LABS: CHOLESTEROL RISK RATIO 3.526 (<5)
== END ==
LOC: M LAB 08:58
PROVIDERS: ATTEND Internal Medicine Cardiovascular Disease
DX: I25.119 Atherosclerotic heart disease of native coronary artery with unspecified angina pectoris (principal); E78.2 Mixed hyperlipidemia

== ENCOUNTER → 2020-10-14 | Outpatient (REF) | payer OTHER ==
[~2020-10-14] MED LIST changes: -METH-1165 PO; +METH750T2 PO
== END ==
LOC: M LAB REF 15:34
PROVIDERS: ATTEND Physician Assistant
DX: N39.0 Urinary tract infection, site not specified (principal)

== ENCOUNTER 2020-11-13 21:21 | Emergency (ER) | payer OTHER ==
[~2020-11-13] VITALS: Ht 157.5 cm; Wt 79.0 kg
[~2020-11-13 21:21] MED LIST changes: +METH-1165 PO; -METH750T2 PO
[2020-11-13] MEDS ORDERED: COMBIVENT RESPIMAT 100-20MCG INHALER 4GM INH ONE (22:15)
[2020-11-13 22:40] LABS: BASO % 0.5 % (0.0-1.0); EOS % 0.7 % (0.0-3.0); HEMOGLOBIN 14.4 g/dl (12.0-15.5); LYMPH # 1.8 10^3/uL (1.5-5.0); LYMPH % 41.1 % (24.0-44.0); MEAN CORPUSCULAR HEMOGLOBIN 28.9 pg (27.0-33.0); MEAN CORPUSCULAR HGB CONC 33.5 g/dl (32.0-36.5); MEAN CORPUSCULAR VOLUME 86.2 fl (80.0-96.0); MONO # 0.3 10^3/uL (0.0-0.8); MONO % 6.6 % (2.0-8.0); NEUTROPHILS # 2.2 10^3/uL (1.5-8.5); NEUTROPHILS % 50.9 % (36.0-66.0); PLATELET COUNT, AUTOMATED 176 10^3/uL (150-450); RED BLOOD COUNT 4.99 10^6/uL (4.00-5.40); WHITE BLOOD COUNT 4.3 10^3/uL (4.0-10.0)
--- NOTE | 2020-11-13 22:45 | REPVR ---
PROCEDURE INFORMATION: Exam: XR Chest Exam date and time: 11/13/2020 10:39 PM Age: 50 years old Clinical indication: Cough and shortness of breath; Additional info: Coronavirus workup TECHNIQUE: Imaging protocol: XR of the chest Views: 1 view. COMPARISON: [facility] PORTABLE CHEST X-RAY 01/21/2019 5:58 PM FINDINGS: Tubes, catheters and devices: A generator and electrode wire traversing the right hemithorax is unchanged. Lungs: There is decreased inflation of the lungs. Minimal left base plate atelectasis and minimal right base infiltrate or atelectasis since the prior study. Pleural spaces: Unremarkable. No pleural effusion. No pneumothorax. Heart/Mediastinum: The heart and mediastinum are unchanged. Bones/joints: Unremarkable. IMPRESSION: Decreased inflation since 01/21/2019 with minimal bibasilar infiltrate or atelectasis. Electronically signed by: Alejandro Corley On 11/13/2020 22:46:07 PM
[2020-11-13 22:50] LABS: INR 0.88; PARTIAL THROMBOPLASTIN TIME 29.7 SECONDS (24.2-38.5); PROTHROMBIN TIME 12.1 SECONDS (12.5-14.3)
[2020-11-13 22:53] LABS: D-DIMER QUANT 391.92 ng/ml (<500)
[2020-11-13 23:16] LABS: ALBUMIN 3.8 GM/DL (3.2-5.2); ALT/SGPT 86 U/L (12-78); BILIRUBIN,TOTAL 0.2 MG/DL (0.2-1.0); BLOOD UREA NITROGEN 13 MG/DL (7-18); C REACTIVE PROTEIN QUANTITATIV 0.66 MG/DL (0.00-0.30); CALCIUM LEVEL 8.7 MG/DL (8.5-10.1); CARBON DIOXIDE LEVEL 25 MEQ/L (21-32); CHLORIDE LEVEL 103 MEQ/L (98-107); CREATININE FOR GFR 0.88 MG/DL (0.55-1.30); GLOMERULAR FILTRATION RATE > 60.0 (>58); GLUCOSE, FASTING 153 MG/DL (70-100); LDH LACTATE DEHYDROGENASE 219 U/L (84-246); POTASSIUM SERUM 4.1 MEQ/L (3.5-5.1); SODIUM LEVEL 136 MEQ/L (136-145); TOTAL PROTEIN 7.5 GM/DL (6.4-8.2)
[2020-11-14 00:37] LABS: RSV AMPLIFICATION NEGATIVE (NEGATIVE)
[2020-11-14] MEDS ORDERED: COMBAER6 INH (01:06)
[2020-11-14 01:21] VITALS: BP 150/97
--- NOTE | 2020-11-14 07:31 | ECGEPIP ---
[facility] - ED Test Date: 2020-11-13 Pat Name: VANI LOZA Department: Room: - Gender: Female Intelligence Chief: RAJANI : 1970 Requested By: MILAD Han Order Number: [id number] Reading MD: Adams Ireland Measurements Intervals [place] Rate: 104 P: 41 [place]: 152 QRS: -3 QRSD: 84 T: 71 QT: 370 QTc: 486 Interpretive Statements Sinus tachycardia Anteroseptal infarct , age undetermined NSTTW ABNORMALITY(S) SIMILAR TO 09/13/19 Electronically Signed on 11-14-2020 7:30:53 EST by Adams Ireland
== END 2020-11-14 01:25 | disposition home or self-care (01) ==
LOC: M ED 21:21
DX: U07.1 COVID-19 (principal); E11.9 Type 2 diabetes mellitus without complications; J45.909 Unspecified asthma, uncomplicated; I51.9 Heart disease, unspecified; I25.2 Old myocardial infarction; Z79.82 Long term (current) use of aspirin; Z79.51 Long term (current) use of inhaled steroids; Z79.4 Long term (current) use of insulin; Z79.899 Other long term (current) drug therapy; Z88.6 Allergy status to analgesic agent; Z88.8 Allergy status to other drugs, medicaments and biological substances; Z95.5 Presence of coronary angioplasty implant and graft

== ENCOUNTER → 2020-12-02 | Outpatient (CLI) | payer OTHER ==
[~2020-12-02] MED LIST changes: +COMBAER6 INH
[2020-12-02 13:54] LABS: APPEARANCE, URINE CLEAR (CLEAR); BACTERIA, URINE AUTO 1+ (NEGATIVE); BILIRUBIN, URINE AUTO NEGATIVE (NEGATIVE); BLOOD, URINE BLOOD NEGATIVE (NEGATIVE); COLOR, URINE STRAW (YELLOW); GLUCOSE, URINE (UA) AUTO NEGATIVE (NEGATIVE); KETONE, URINE AUTO NEGATIVE (NEGATIVE); LEUKOCYTE ESTERASE, URINE AUTO NEGATIVE (NEGATIVE); NITRITE, URINE AUTO NEGATIVE (NEGATIVE); PROTEIN, URINE AUTO NEGATIVE (NEGATIVE); RBC, URINE AUTO 0 /HPF (0-3); SPECIFIC GRAVITY URINE AUTO 1.005 (1.002-1.035); SQUAMOUS EPITHELIAL CELL UR AU 4 /HPF (0-6); UROBILINOGEN, URINE AUTO 0.2 mg/dL (0.0-2.0); WBC, URINE AUTO 0 /HPF (0-3)
== END ==
LOC: M LAB 12:38
PROVIDERS: ATTEND Internal Medicine Endocrinology, Diabetes & Metabolism
DX: E11.65 Type 2 diabetes mellitus with hyperglycemia (principal)

== ENCOUNTER → 2020-12-14 | Outpatient (REF) | payer OTHER ==
[2020-12-14 19:19] LABS: CREATININE, URINE 57.4 MG/DL; MALB URINE SIEMENS 5.4 MG/L; MAU/CREAT RATIO 9.4 MCG/MG (0.0-30.0)
== END ==
LOC: M LAB REF 17:13
PROVIDERS: ATTEND Nurse Practitioner Family
DX: E11.65 Type 2 diabetes mellitus with hyperglycemia (principal)

== ENCOUNTER → 2020-12-19 | Outpatient (CLI) | payer OTHER ==
[2020-12-19 11:06] LABS: CHOLESTEROL RISK RATIO 3.305 (<5)
== END ==
LOC: M LAB 09:02
PROVIDERS: ATTEND Internal Medicine Cardiovascular Disease
DX: I25.119 Atherosclerotic heart disease of native coronary artery with unspecified angina pectoris (principal); E78.2 Mixed hyperlipidemia

== ENCOUNTER → 2021-01-08 | Outpatient (REF) | payer OTHER | LOC: M LAB REF 17:48 | PROVIDERS: ATTEND Physician Assistant Medical | DX: N39.0 Urinary tract infection, site not specified (principal) ==

== ENCOUNTER → 2021-06-14 | Outpatient (CLI) | payer OTHER ==
[~2021-06-14] MED LIST changes: +DOK1CAP4 PO; -DOK1CAP7 PO
--- NOTE | 2021-06-14 10:14 | REP ---
INDICATION: LOW BACK PAIN COMPARISON: None. TECHNIQUE: AP, lateral, bilateral oblique, and coned-down views of the lumbar spine. FINDINGS: Alignment and lordosis maintained. Vertebral bodies are intact. No acute fracture/compression injury or subluxation. Moderate degenerative spondylosis at L5-S1 and to a lesser extent L4-5 includes endplate sclerosis, early marginal spurring, facet hypertrophy and disc space narrowing.. IMPRESSION: Moderate degenerative changes primarily involving L5-S1 and L4-5. <Electronically signed by Da Reynoso > 06/14/21 1017
== END ==
LOC: M RAD 09:25
PROVIDERS: ATTEND Physician Assistant
DX: M54.59 Other low back pain (principal)

== ENCOUNTER → 2021-10-12 | Outpatient (CLI) | payer OTHER ==
[~2021-10-12] MED LIST changes: -OMEP-221 PO; +OMEP40CA5 PO
== END ==
LOC: M EKG 10:59
PROVIDERS: ATTEND Physician Assistant
DX: Z01.818 Encounter for other preprocedural examination (principal)

== ENCOUNTER → 2021-10-12 | Outpatient (CLI) | payer OTHER | LOC: M LABSMTC 13:34 | PROVIDERS: ATTEND Ophthalmology Retina Specialist | DX: Z11.52 Encounter for screening for COVID-19 (principal) ==

== ENCOUNTER → 2021-10-24 | Outpatient (CLI) | payer OTHER | LOC: M PLAIMG 07:57 | PROVIDERS: ATTEND Physician Assistant | DX: M51.36 Other intervertebral disc degeneration, lumbar region (principal) ==

== ENCOUNTER → 2021-11-18 | Outpatient (REF) | payer OTHER ==
[2021-11-18 21:45] LABS: APPEARANCE, URINE CLOUDY (CLEAR); BACTERIA, URINE AUTO 2+ (NEGATIVE); BILIRUBIN, URINE AUTO NEGATIVE (NEGATIVE); BLOOD, URINE BLOOD 1+ (NEGATIVE); CALCIUM OXALATE CRYSTALS SMALL; COLOR, URINE AMBER (YELLOW); GLUCOSE, URINE (UA) AUTO NEGATIVE (NEGATIVE); KETONE, URINE AUTO NEGATIVE (NEGATIVE); LEUKOCYTE ESTERASE, URINE AUTO 2+ (NEGATIVE); MUCUS, URINE SMALL (NEGATIVE); NITRITE, URINE AUTO POSITIVE (NEGATIVE); PROTEIN, URINE AUTO 1+ mg/dL (NEGATIVE); RBC, URINE AUTO 7 /HPF (0-3); SQUAMOUS EPITHELIAL CELL UR AU 5 /HPF (0-6); UROBILINOGEN, URINE AUTO 0.2 mg/dL (0.0-2.0); WBC, URINE AUTO 104 /HPF (0-3)
== END ==
LOC: M LAB REF 21:16
PROVIDERS: ATTEND Physician Assistant Medical
DX: N39.0 Urinary tract infection, site not specified (principal)

== ENCOUNTER → 2022-03-26 | Outpatient (CLI) | payer OTHER ==
[2022-03-26 12:50] LABS: CHOLESTEROL RISK RATIO 3.5 (<5)
== END ==
LOC: M LAB 11:55
PROVIDERS: ATTEND Internal Medicine Cardiovascular Disease
DX: Z98.61 Coronary angioplasty status (principal); I25.119 Atherosclerotic heart disease of native coronary artery with unspecified angina pectoris

== ENCOUNTER 2022-05-26 13:20 | Emergency (ER) | payer OTHER ==
[~2022-05-26] VITALS: Ht 157.5 cm; Wt 78.2 kg
[2022-05-26] MEDS ORDERED: ROSU40TA4 (13:30)
[2022-05-26] MEDS ORDERED: ACETAMINOPHEN 500 MG TAB PO ONE ×2 (13:50→16:00)
[2022-05-26 14:39] LABS: RSV AMPLIFICATION NEGATIVE (NEGATIVE)
[2022-05-26 16:34] VITALS: BP 120/74
== END 2022-05-26 16:53 | disposition home or self-care (01) ==
LOC: M ED 13:20
DX: J06.9 Acute upper respiratory infection, unspecified (principal); R00.0 Tachycardia, unspecified; J45.909 Unspecified asthma, uncomplicated; E11.9 Type 2 diabetes mellitus without complications; I11.9 Hypertensive heart disease without heart failure; I25.2 Old myocardial infarction; Z95.5 Presence of coronary angioplasty implant and graft; Z88.5 Allergy status to narcotic agent; Z88.8 Allergy status to other drugs, medicaments and biological substances

== ENCOUNTER → 2022-10-31 | Outpatient (CLI) | payer OTHER ==
[~2022-10-31] MED LIST changes: +CLOP75TA99 PO; -PLAV1TAB2 PO; +ROSU40TA4
[2022-10-31 12:06] LABS: HEMATOCRIT 40.5 % (36.0-47.0); HEMOGLOBIN 13.8 g/dl (12.0-15.5); MEAN CORPUSCULAR HEMOGLOBIN 29.1 pg (27.0-33.0); MEAN CORPUSCULAR HGB CONC 34.1 g/dl (32.0-36.5); MEAN CORPUSCULAR VOLUME 85.3 fl (80.0-96.0); PLATELET COUNT, AUTOMATED 210 10^3/uL (150-450); RED BLOOD COUNT 4.75 10^6/uL (4.00-5.40); WHITE BLOOD COUNT 4.6 10^3/uL (4.0-10.0)
[2022-10-31 12:22] LABS: HEMOGLOBIN A1c 9.4 % (4.0-6.0)
[2022-10-31 12:32] LABS: BLOOD UREA NITROGEN 12 MG/DL (9-23); CALCIUM LEVEL 9.5 MG/DL (8.5-10.1); CARBON DIOXIDE LEVEL 26 MMOL/L (20-31); CHLORIDE LEVEL 102 MMOL/L (98-107); CREATININE FOR GFR 0.79 MG/DL (0.55-1.30); GLOMERULAR FILTRATION RATE > 60.0 (>51); GLUCOSE, FASTING 153 MG/DL (60-100); SODIUM LEVEL 138 MMOL/L (136-145)
== END ==
LOC: M LAB 11:34
PROVIDERS: ATTEND Physician Assistant
DX: E11.40 Type 2 diabetes mellitus with diabetic neuropathy, unspecified (principal)

== ENCOUNTER → 2023-03-05 | Outpatient (REF) | payer OTHER ==
[~2023-03-05] MED LIST changes: +DICY-61 PO; -DICY10CA13 PO; +MONT-5 PO; -SING10TA32 PO
== END ==
LOC: M SMT 13:22
PROVIDERS: ATTEND Specialist
DX: N89.8 Other specified noninflammatory disorders of vagina (principal)

== ENCOUNTER → 2023-04-23 | Outpatient (REF) | payer OTHER ==
[2023-04-24 17:26] LABS: CREATININE, URINE 198.7 MG/DL; MAU/CREAT RATIO 18.6 MCG/MG (0.0-30.0)
== END ==
LOC: M LAB REF 16:29
PROVIDERS: ATTEND Physician Assistant
DX: Z79.4 Long term (current) use of insulin (principal)

== ENCOUNTER 2023-07-23 22:19 | Emergency (ER) | payer OTHER ==
[~2023-07-23] VITALS: Ht 160 cm; Wt 79.3 kg
[2023-07-23 23:59] VITALS: TEMP 98.2
[2023-07-24] MEDS: BUDESONIDE 0.5 MG/2 ML INHALATION SUSPENSION INH ONE ×2 (00:20→01:16)
[2023-07-24 00:24] LABS: INR 0.99; PROTHROMBIN TIME 12.8 SECONDS (12.5-14.5)
[2023-07-24 00:32] LABS: CK-MB VALUE MASS < 1.0 NG/ML (<3.6)
[2023-07-24 00:34] LABS: BLOOD UREA NITROGEN 15 MG/DL (9-23); CALCIUM LEVEL 9.3 MG/DL (8.5-10.1); CARBON DIOXIDE LEVEL 26 MMOL/L (20-31); CHLORIDE LEVEL 107 MMOL/L (98-107); CREATININE FOR GFR 0.75 MG/DL (0.55-1.30); GLOMERULAR FILTRATION RATE > 60.0 (>51); GLUCOSE, FASTING 101 MG/DL (60-100); POTASSIUM SERUM 4.1 MMOL/L (3.5-5.1); SODIUM LEVEL 142 MMOL/L (136-145)
[2023-07-24 00:39] LABS: CPK CREATINE PHOSPHOKINASE 147 U/L (34-145); MB/CK RELATIVE INDEX 0.68 (< OR =4)
[2023-07-24] MEDS: IPRATROPIUM 0.5MG/ALBUTEROL 2.5MG INH SOL UD 3ML (DUONEB) NEB SCH ×2 (00:53→00:55)
[2023-07-24 01:06] LABS: BASO # 0.1 10^3/uL (0.0-0.2); BASO % 1.5 % (0.0-1.0); EOS # 0.3 10^3/uL (0.0-0.5); EOS % 4.4 % (0.0-3.0); HEMATOCRIT 40.6 % (36.0-47.0); HEMOGLOBIN 13.8 g/dl (12.0-15.5); LYMPH % 39.6 % (24.0-44.0); MEAN CORPUSCULAR HEMOGLOBIN 28.8 pg (27.0-33.0); MEAN CORPUSCULAR VOLUME 84.6 fl (80.0-96.0); MONO # 0.6 10^3/uL (0.0-0.8); MONO % 7.4 % (2.0-8.0); NEUTROPHILS # 3.5 10^3/uL (1.5-8.5); NEUTROPHILS % 46.8 % (36.0-66.0); PLATELET COUNT, AUTOMATED 245 10^3/uL (150-450); WHITE BLOOD COUNT 7.6 10^3/uL (4.0-10.0)
[2023-07-24] MEDS ORDERED: ISOVUE-370 76% 100ML VIAL As Ordered ONE (01:19)
[2023-07-24 02:30] VITALS: BP 125/73
[2023-07-24] MEDS ORDERED: predniSONE 20 MG TAB PO ONE (02:30)
[2023-07-24 02:34] VITALS: O2SAT 95
[2023-07-24] MEDS ORDERED: PRED20TA PO (02:34)
== END 2023-07-24 02:55 | disposition home or self-care (01) ==
LOC: M ED 22:19
DX: J40 Bronchitis, not specified as acute or chronic (principal); Z86.16 Personal history of COVID-19; Z11.52 Encounter for screening for COVID-19; I25.2 Old myocardial infarction; I25.10 Atherosclerotic heart disease of native coronary artery without angina pectoris; E11.9 Type 2 diabetes mellitus without complications; Z88.5 Allergy status to narcotic agent; Z88.8 Allergy status to other drugs, medicaments and biological substances; Z95.5 Presence of coronary angioplasty implant and graft; Z79.84 Long term (current) use of oral hypoglycemic drugs; Z79.4 Long term (current) use of insulin; Z79.899 Other long term (current) drug therapy
CPT/HCPCS: 36415; 71046; 71275; 80048; 82550; 82553; 85025; 85610; 87486; 87581; 87633; 87798; 93005; 99284; J7512; Q9967

== ENCOUNTER → 2023-10-24 | Outpatient (CLI) | payer OTHER ==
[~2023-10-24] MED LIST changes: +PRED20TA PO
== END ==
LOC: M WHC 09:24
PROVIDERS: ATTEND Physician Assistant
DX: Z12.31 Encounter for screening mammogram for malignant neoplasm of breast (principal)

== ENCOUNTER → 2023-11-08 | Outpatient (REF) | payer OTHER ==
[2023-11-08 14:30] LABS: APPEARANCE, URINE CLOUDY (CLEAR); BACTERIA, URINE AUTO 2+ (NEGATIVE); BILIRUBIN, URINE AUTO NEGATIVE (NEGATIVE); BLOOD, URINE BLOOD 1+ (NEGATIVE); COLOR, URINE YELLOW (YELLOW); GLUCOSE, URINE (UA) AUTO NEGATIVE (NEGATIVE); KETONE, URINE AUTO NEGATIVE (NEGATIVE); LEUKOCYTE ESTERASE, URINE AUTO 3+ (NEGATIVE); NITRITE, URINE AUTO POSITIVE (NEGATIVE); PROTEIN, URINE AUTO 1+ mg/dL (NEGATIVE); RBC, URINE AUTO 3 /HPF (0-3); SPECIFIC GRAVITY URINE AUTO 1.016 (1.002-1.035); SQUAMOUS EPITHELIAL CELL UR AU 5 /HPF (0-6); UROBILINOGEN, URINE AUTO 0.2 mg/dL (0.0-2.0); WBC, URINE AUTO TNTC /HPF (0-3)
== END ==
LOC: M LAB REF 12:34
PROVIDERS: ATTEND Physician Assistant
DX: N39.0 Urinary tract infection, site not specified (principal)

== ENCOUNTER → 2023-12-14 | Outpatient (REF) | payer OTHER | LOC: M LAB REF 19:36 | PROVIDERS: ATTEND Student in an Organized Health Care Education/Training Program | DX: R30.0 Dysuria (principal) ==

== ENCOUNTER → 2024-01-25 | Outpatient (REF) | payer OTHER ==
[~2024-01-25] MED LIST changes: -ROSU40TA4; +ROSU40TA63
== END ==
LOC: M LAB REF 19:58
PROVIDERS: ATTEND Physician Assistant
DX: N30.01 Acute cystitis with hematuria (principal)

== ENCOUNTER → 2024-06-17 | Outpatient (REF) | payer OTHER ==
[~2024-06-17] MED LIST changes: -ROSU40TA63; +ROSU40TA81
[2024-06-17 18:56] LABS: CREATININE, URINE 212.3 MG/DL; MAU/CREAT RATIO 118.2 MCG/MG (0.0-30.0)
== END ==
LOC: M LAB REF 16:20
PROVIDERS: ATTEND Physician Assistant
DX: R30.9 Painful micturition, unspecified (principal)

== ENCOUNTER → 2024-07-21 | Outpatient (CLI) | payer OTHER | LOC: M RAD 10:17 | PROVIDERS: ATTEND Physician Assistant | DX: R05.9 Cough, unspecified (principal) ==

== ENCOUNTER → 2024-08-04 | Outpatient (REF) | payer OTHER | LOC: M LAB REF 16:05 | PROVIDERS: ATTEND Physician Assistant | DX: N30.00 Acute cystitis without hematuria (principal) ==

== ENCOUNTER → 2024-09-05 | Outpatient (REF) | payer OTHER ==
[2024-09-05 16:29] LABS: APPEARANCE, URINE CLOUDY (CLEAR); BACTERIA, URINE AUTO NEGATIVE (NEGATIVE); BILIRUBIN, URINE AUTO NEGATIVE (NEGATIVE); BLOOD, URINE BLOOD 1+ (NEGATIVE); COLOR, URINE AMBER (YELLOW); GLUCOSE, URINE (UA) AUTO NEGATIVE (NEGATIVE); KETONE, URINE AUTO TRACE mg/dL (NEGATIVE); LEUKOCYTE ESTERASE, URINE AUTO 3+ (NEGATIVE); MUCUS, URINE SMALL (NEGATIVE); NITRITE, URINE AUTO NEGATIVE (NEGATIVE); PROTEIN, URINE AUTO 1+ mg/dL (NEGATIVE); RBC, URINE AUTO 6 /HPF (0-3); SPECIFIC GRAVITY URINE AUTO 1.027 (1.002-1.035); SQUAMOUS EPITHELIAL CELL UR AU 3 /HPF (0-6); WBC, URINE AUTO TNTC /HPF (0-3)
== END ==
LOC: M LAB REF 15:59
PROVIDERS: ATTEND Physician Assistant Medical
DX: N39.0 Urinary tract infection, site not specified (principal)

== ENCOUNTER → 2025-03-17 | Outpatient (REF) | payer OTHER | LOC: M LAB REF 17:43 | PROVIDERS: ATTEND Nurse Practitioner Family | DX: R30.0 Dysuria (principal) ==

== ENCOUNTER → 2025-04-26 | Outpatient (REF) | payer OTHER | LOC: M LAB REF 11:45 | PROVIDERS: ATTEND Nurse Practitioner Family | DX: R30.0 Dysuria (principal) ==

== ENCOUNTER → 2025-05-31 | Outpatient (REF) | payer OTHER ==
[2025-05-31 18:39] LABS: CREATININE, URINE 194.9 MG/DL; MALB URINE SIEMENS 31.0 MG/L; MAU/CREAT RATIO 15.9 MCG/MG (0.0-30.0)
[2025-05-31 18:54] LABS: ALT/SGPT 56.0 U/L (7.0-40); AST/SGOT 38.0 U/L (<34); CALCIUM LEVEL 8.9 MG/DL (8.5-10.1); CARBON DIOXIDE LEVEL 27.0 MMOL/L (20-31); CHLORIDE LEVEL 107.0 MMOL/L (98-107); CHOLESTEROL LEVEL 97.0 MG/DL (<200); CHOLESTEROL RISK RATIO 2.72 (<5); CREATININE FOR GFR 0.87 MG/DL (0.55-1.30); GLOMERULAR FILTRATION RATE 79.6 (>51); LDL CHOLESTEROL 27.6 MG/DL (<100); NON-HDL-C 61.4 MG/DL; POTASSIUM SERUM 5.1 MMOL/L (3.5-5.1); SODIUM LEVEL 138.0 MMOL/L (136-145); TRIGLYCERIDES LEVEL 169.0 MG/DL (<150)
[2025-05-31 18:57] LABS: TOTAL 25(OH) VITAMIN D 40.0 NG/ML (20.0-100.0)
[2025-05-31 19:49] LABS: PLATELET COUNT, AUTOMATED 195 10^3/uL (150-450)
[2025-05-31 20:01] LABS: ATYPICAL LYMPH 5 % (0-5); EOSINOPHILS 6 % (0-3); LYMPHOCYTES 61 % (16-44); MONOCYTES 8 % (0-5); NEUTROPHILS 20 % (28-66); PLATELET ESTIMATE NORMAL (NORMAL)
[2025-05-31 20:40] LABS: ESTIMATED AVERAGE GLUCOSE 186.0 MG/DL (60-110)
== END ==
LOC: M LAB REF 17:15
PROVIDERS: ATTEND Student in an Organized Health Care Education/Training Program
DX: E10.69 Type 1 diabetes mellitus with other specified complication (principal); E55.9 Vitamin D deficiency, unspecified